=== PATIENT | female | born 1975 | race Asian ===

== ENCOUNTER 2019-12-22 11:19 | Outpatient (CLI) | payer OTHER, SELFPAY ==
--- NOTE | ~2019-12-22 | XR_ITS ---
XR chest 2V DATE: 12/22/2019 11:42 INDICATION: Shortness of breath TECHNIQUE: PA and lateral views COMPARISON: 10/25/2011 two-view chest and CT pulmonary scan FINDINGS: Normal heart size. No hilar or mediastinal enlargement. No pulmonary infiltrate or consolid ation, pleural effusion or pulmonary vascular congestion or pneumothorax. IMPRESSION: No active cardiopulmonary disease Reviewed, dictated and finalized at location B.
== END 2019-12-22 11:20 | disposition home or self-care (01) ==
PROVIDERS: PCP Internal Medicine; Visit Provider Nurse Practitioner
DX: R06.02 Shortness of breath (principal)
CPT/HCPCS: 71046

== ENCOUNTER 2019-12-22 14:57 | Outpatient (CLI) | payer OTHER, SELFPAY ==
--- NOTE | 2019-12-22 | ECG_ITS ---
Measurements Intervals [place] Rate: 72 P: 47 AL: 171 QRS: 37 QRSD: 74 T: 16 QT: 395 QTc: 434 Interpretive Statements SINUS RHYTHM RSR' IN V1 OR V2, PROBABLY NORMAL VARIANT BORDERLINE ST-T WAVE ABNORMALITY- INFERIOR LEADS BORDERLINE ECG Electronically Signed On 12-22-2019 15:19:45 CDT by Bryn Daniel D.O.
== END 2019-12-22 14:58 | disposition home or self-care (01) ==
LOC: ANHCARD 15:00
PROVIDERS: PCP Internal Medicine; Visit Provider Nurse Practitioner
DX: R06.02 Shortness of breath (principal)
CPT/HCPCS: 93005

== ENCOUNTER 2019-12-23 11:11 | Outpatient (CLI) | payer OTHER, SELFPAY ==
[2019-12-23 11:48] LABS: Basophils Absolute Auto 0.1 K/mm3 (0.0-0.1); Basophils Percent Auto 0.6 % (0.2-1.2); Eosinophils Absolute Auto 0.3 K/mm3 (0-0.3); Hematocrit 40.5 % (37.0-47.0); Immature Granulocyte Absolute 0.08 K/mm3 (0.00-0.031); Lymphocytes Absolute Auto 2.03 K/mm3 (0.9-3.2); Lymphocytes Percent Auto 24.3 % (18.3-44.2); Mean Corpuscular HGB Conc 34.6 g/dl (32-36); Mean Corpuscular Hemoglobin 32.9 pg (26-34); Mean Corpuscular Volume 95.3 fl (80-100); Mean Platelet Volume 10.7 fl (7.4-10.4); Monocytes Absolute Auto 0.7 K/mm3 (0.1-0.6); Monocytes Percent Auto 8.7 % (2.6-8.5); Neutrophils Absolute Auto 5.2 K/mm3 (1.3-6.7); Neutrophils Percent Auto 62.4 % (45.5-73.1); Platelet Count Result 148 k/mm3 (150-375); Red Blood Count 4.25 M/mm3 (4.2-5.4); Red Cell Distribution Width 12.1 % (11.5-14.5); White Blood Count 8.4 K/mm3 (4.5-10.0)
[2019-12-23 12:05] LABS: Alanine Aminotransferase 25 U/L (4-35); Albumin Level 4.1 g/dL (3.5-5.1); Alkaline Phosphatase 50 U/L (38-126); Aspartate Amino Transferase 27 U/L (14-36); Bilirubin,Total 0.5 mg/dL (0.2-1.3); Blood Urea Nitrogen 10 mg/dL (7-17); Calcium 9.1 mg/dL (8.4-10.2); Carbon Dioxide 26 mmol/L (22-30); Chloride 105 mmol/L (98-107); Estimated Glomerular Filt Rate > 60; Glucose 104 mg/dL (65-105); Potassium 4.3 mmol/L (3.4-5.0); Sodium 138 mmol/L (137-145)
== END 2019-12-23 11:12 | disposition home or self-care (01) ==
PROVIDERS: PCP Internal Medicine; Visit Provider Nurse Practitioner
DX: R06.02 Shortness of breath (principal)
CPT/HCPCS: 36415; 80053; 84443; 85025

== ENCOUNTER 2020-03-07 15:16 | Outpatient (CLI) | payer OTHER, SELFPAY ==
--- NOTE | ~2020-03-07 | XR_ITS ---
EXAMINATION: XR chest 2V DATE: 03/07/2020 15:32 INDICATION: Mid to left-sided chest pain TECHNIQUE: PA and lateral views of the chest are obtained. COMPARISON: 12/22/2019 FINDINGS: The lungs are free of acute opacities. There is no pleural effusion or pneumothorax. The ca rdiomediastinal silhouette is normal. The visualized bones and soft tissues are unremarkable. IMPRESSION: 1. No acute cardiopulmonary abnormality. Reviewed, dictated and finalized at location A.
== END 2020-03-07 15:17 | disposition home or self-care (01) ==
LOC: ANHIMG 15:17
PROVIDERS: PCP Internal Medicine; Visit Provider Clinical Nurse Specialist
DX: M54.9 Dorsalgia, unspecified (principal); R07.81 Pleurodynia
CPT/HCPCS: 71046

== ENCOUNTER 2020-03-08 12:36 | Emergency (ER) | payer OTHER, SELFPAY ==
[2020-03-08 12:38] VITALS: BP 153/97; PULSE 81; RESP 16; TEMP 36.6; O2SAT 98
--- NOTE | 2020-03-08 12:43 | ECG_ITS ---
Measurements Intervals [place] Rate: 78 P: 40 WI: 160 QRS: 22 QRSD: 86 T: 23 QT: 368 QTc: 421 Interpretive Statements SINUS RHYTHM NONSPECIFIC ST ELEVATION IN ANTERIOR LEADS- PROBABLY EARLY REPOLARIZATION BORDERLINE T WAVE ABNORMALITY- INFERIOR LEADS BORDERLINE ECG Electronically Signed On 03-08-2020 13:04:27 CDT by Bryn Daniel D.O.
[2020-03-08 12:49] VITALS: BP 126/93; PULSE 80; PULSE 83; RESP 19; O2SAT 98
[2020-03-08] MEDS: ASPIRIN 81 MG CHEWABLE TABLET 324 MG PO (12:50)
[2020-03-08 13:04] LABS: Basophils Absolute Auto 0.1 K/mm3 (0.0-0.1); Basophils Percent Auto 1.1 % (0.2-1.2); Eosinophils Absolute Auto 0.1 K/mm3 (0-0.3); Eosinophils Percent Auto 1.8 % (0-4.4); Hematocrit 41.3 % (37.0-47.0); Hemoglobin 14.3 g/dL (12.0-15.0); Immature Granulocyte Absolute 0.01 K/mm3 (0.00-0.031); Immature Granulocyte Percent A 0.2 % (0-0.5); Lymphocytes Absolute Auto 1.26 K/mm3 (0.9-3.2); Lymphocytes Percent Auto 22.6 % (18.3-44.2); Mean Corpuscular HGB Conc 34.6 g/dl (32-36); Mean Corpuscular Hemoglobin 33.1 pg (26-34); Mean Corpuscular Volume 95.6 fl (80-100); Mean Platelet Volume 10.5 fl (7.4-10.4); Monocytes Absolute Auto 0.4 K/mm3 (0.1-0.6); Monocytes Percent Auto 7.2 % (2.6-8.5); Neutrophils Absolute Auto 3.8 K/mm3 (1.3-6.7); Neutrophils Percent Auto 67.1 % (45.5-73.1); Platelet Count Result 162 k/mm3 (150-375); Red Blood Count 4.32 M/mm3 (4.2-5.4); Red Cell Distribution Width 12.2 % (11.5-14.5); White Blood Count 5.6 K/mm3 (4.5-10.0)
[2020-03-08 13:14] LABS: Partial Thromboplastin Time 27.5 SECONDS (22.3-36.8)
[2020-03-08 13:17] LABS: Blood Urea Nitrogen 13 mg/dL (7-17); Calcium 9.2 mg/dL (8.4-10.2); Carbon Dioxide 23 mmol/L (22-30); Chloride 106 mmol/L (98-107); Estimated CRCL calculation 72 ml/min; Estimated Glomerular Filt Rate > 60; Glucose 146 mg/dL (65-105); Potassium 3.7 mmol/L (3.4-5.0); Sodium 139 mmol/L (137-145)
--- NOTE | 2020-03-08 13:23 | ED.CHESTPAIN ---
HPI - Chest Pain General Chief Complaint: Chest Pain Stated Complaint: Chest Pain Time Seen by Provider: 03/08/20 12:52 Source: patient Mode of arrival: ambulatory Limitations: no limitations History of Present Illness HPI narrative: This patient is a 44 year old female who presents for evaluation of left flank pain that comes around to her mid chest. THis pain has been present constantly for 10 days. She states her pain is still getting worse. She has also notice a rash to left flank pain that started at the same time. She was evaluated by her PCP yesterday and she had a chest xray. She denies fever, cough, nausea, vomiting or shortness of breath. She is taking ibuprofen for her pain. Related Data Home Medications Medication Instructions Recorded Confirmed lisinopril 5 mg tablet 5 mg PO DAILY 11/03/19 12/23/19 Allergies Allergy/AdvReac Type Severity Reaction Status Date / Time No Known Allergies Allergy Unknown Verified 03/08/20 12:51 Review of Systems Review of Systems: All systems reviewed & are unremarkable except as noted in HPI and below Constitutional: Constitutional: Denies chills and Denies fever(s) Cardiovascular: Cardiovascular: Reports chest pain Respiratory: Respiratory: Denies cough and Denies dyspnea Gastrointestinal: Gastrointestinal: Denies abdominal pain, Denies nausea and Denies vomiting Genitourinary: Genitourinary: Denies hematuria and Denies nocturia PMFSH Past Medical History Medical History (Updated 03/08/20 @ 16:13 by Shawna Mcneil MD) Back pain HTN (hypertension) Myalgia Vitamin deficiency Surgical History Surgical History (Updated 11/03/19 @ 08:03 by Jo Aguirre CMA) History of thyroidectomy Family History Family History (Updated 11/03/19 @ 08:03 by Jo Aguirre CMA) Father Hypertension Mother Hypertension Osteoarthritis Social History Social History (Updated 03/02/20 @ 08:00 by Jo Aguirre CMA) Smoking status: Never smoker Alcohol intake: current Gender identity (if verbalized by the patient): Female Exam Narrative: Exam Narrative: GENERAL: Well-appearing, well-nourished, mild distress due to pain HEAD: Normocephalic, atraumatic EYES: PERRLA and EOMI, conjunctiva clear without discharge EARS: TM's clear bilaterally without erythema or dullness NOSE: Nares clear, no rhinorrhea or epistaxis THROAT:Mucous membranes moist, Oropharynx normal without erythema, exudate, peritonsillar swelling or fluctuance NECK: Supple, without lymphadenopathy or mass RESPIRATORY: No respiratory distress, Airway patent, Respirations non-labored, Clear to auscultation without rales, rhonchi or wheeze HEART: Regular rate and rhythm. No murmur heard. Normal peripheral pulses. left lower rib, sternal tenderness ABDOMEN: Soft, nontender, nondistended, normal active bowel sounds. No masses. No rebound or guarding, No organomegaly. EXTREMITIES: No edema, normal strength with full range of motion. SKIN: Warm, dry, she has a few clusters of vesicular rash to left flank rib along where her pain is located. NEURO: Alert and oriented x3. CN 2-12 grossly intact. No focal deficits. PSYCH: Normal mood and affect. Course Reevaluation(s) Reevaluation #1: Patient declined Chest xray as she had one yesterday. I discussed labs are normal and this pain appears to be reproducible and it may actually be shingles as she has vesicular rash to left flank. Date: 03/08/20 Time: 16:11 Vital Signs Vital signs: Vital Signs Temperature 98 F 03/08/20 12:38 Pulse Rate 81 03/08/20 12:38 Respiratory Rate 16 03/08/20 12:38 Blood Pressure 153/97 H 03/08/20 12:38 Pulse Oximetry 98 03/08/20 12:38 Temperature 98.6 F 03/08/20 16:55 Pulse Rate 68 03/08/20 16:55 Respiratory Rate 17 03/08/20 16:55 Blood Pressure 141/90 H 03/08/20 16:55 Pulse Oximetry 100 03/08/20 16:55 MDM - Chest Pain Lab Data Attestation: I reviewed the patient's
[2020-03-08 13:28] LABS: Troponin I < 0.012 ng/mL (0.000-0.034)
[2020-03-08 13:42] LABS: Alanine Aminotransferase 69 U/L (4-35); Albumin Level 4.6 g/dL (3.5-5.1); Alkaline Phosphatase 61 U/L (38-126); Aspartate Amino Transferase 53 U/L (14-36); Bilirubin,Total 0.7 mg/dL (0.2-1.3); Lipase 128 U/L (23-300)
[2020-03-08] MEDS: ONDANSETRON INJ 4 MG/2 ML VIAL IV PUSH (14:01)
[2020-03-08] MEDS: HYDROMORPHONE HCL 1 MG/ML INJ 0.5 MG IV PUSH (14:03)
[2020-03-08 14:35] VITALS: BP 142/88; PULSE 63; RESP 20; O2SAT 96
--- NOTE | 2020-03-08 16:00 | PC.NURSE ---
ERP at bedside for ultrasound..
[2020-03-08 16:04] LABS: Troponin I < 0.012 ng/mL (0.000-0.034)
[2020-03-08 16:55] VITALS: BP 141/90; PULSE 68; RESP 17; TEMP 37; O2SAT 100
== END 2020-03-08 16:59 | disposition home or self-care (01) ==
PROVIDERS: Emergency Provider General Practice; PCP Internal Medicine
DX: R07.9 Chest pain, unspecified (principal); B02.9 Zoster without complications; I10 Essential (primary) hypertension; E89.0 Postprocedural hypothyroidism
CPT/HCPCS: 36415; 80048; 80076; 83690; 84484; 85025; 85380; 85610; 85730; 93005; 96374; 96375; 99284; A9270; J1170; J2405

== ENCOUNTER → 2020-04-21 14:33 | Outpatient (CLI) | payer OTHER, SELFPAY ==
--- NOTE | ~2020-04-21 | MM_ITS ---
EXAMINATION: MM screening [facility] BI w pete HISTORY: Screening mammogram TECHNIQUE: Craniocaudal and mediolateral oblique 3-D tomosynthesis images were obtained and synthetic 2-D images were generated. CAD analysis was submitted and interpreted. COMPARISON: 01/13/2019, 11/12/2017, 11/09/2016, 11/01/2016 BREAST PARENCHYMAL COMPOSITION: There are scattered areas of fibroglandular density. FINDINGS: A stable mass in the upper outer quadrant of the right breast has the appearance of an intr amammary lymph node. There is no evidence of suspicious mass, calcification, or architectural distort ion to suggest malignancy in either breast. There has been no suspicious interval change. IMPRESSION: 1. No mammographic evidence of malignancy. 2. Recommend routine screening mammography in one year. BI-RADS Category 2: Benign finding(s). Reviewed, dictated and finalized at location B.
== END ==
PROVIDERS: Visit Provider Nurse Practitioner Obstetrics & Gynecology
DX: Z12.31 Encounter for screening mammogram for malignant neoplasm of breast (principal)
CPT/HCPCS: 77063; 77067

== ENCOUNTER → 2020-06-15 08:45 | Outpatient (CLI) | payer OTHER, SELFPAY ==
--- NOTE | ~2020-06-15 | MMUS_ITS ---
EXAMINATION: MM diagnostic [place] RT w pete, US breast RT limited HISTORY: Right breast mass TECHNIQUE: ML, MLO and cc 3-D tomosynthesis images of the right breast were performed and synthetic 2 -D images were generated. CAD analysis was submitted and interpreted. High resolution upper outer melania drant right breast ultrasound was performed. COMPARISON: Serial mammograms dating back to 11/01/2016 FINDINGS: MAMMOGRAPHIC FINDINGS: There is a low-density circumscribed approximate 4 mm opacity in the posterior upper outer right lou st, which appears stable since prior examinations. The mammographic appearance is benign. ULTRASOUND: 10:00 6 cm from nipple: 2.7 x 5 mm lymph node, with circumscribed margins, no suspicious shadowing. T his has the sonographic appearance of a benign lymph node. IMPRESSION: 1. Benign lymph node at 10:00 6 cm from nipple 2. Routine mammographic screening is recommended. BI-RADS Category 2: Benign finding(s). Reviewed, dictated and finalized at location A. IMPRESSION: 1. Benign lymph node at 10:00 6 cm from nipple 2. Routine mammographic screening is recommended. BI-RADS Category 2: Benign finding(s).
== END ==
PROVIDERS: PCP Internal Medicine
DX: N63.11 Unspecified lump in the right breast, upper outer quadrant (principal)
CPT/HCPCS: 76642; 77061; 77065; G0279

== ENCOUNTER → 2020-08-30 09:29 | Outpatient (CLI) | payer OTHER, SELFPAY ==
--- NOTE | ~2020-08-30 | US_ITS ---
US breast BI complete 08/30/2020 09:54 Indication: Bilateral breast pain Procedure: Comparison to multiple prior studies sequentially, with oldest reviewed study dated 2019. Comparison: No prior studies for comparison. Findings: There is a normal 4 mm lymph node of the right breast at 10:00, 6 cm from the nipple. No ma ss identified in the left breast. Impression: 1: No sonographic evidence for malignancy in either breast. Routine yearly screening mammogram and regular clinical breast examination are recommended. BI-RADS CATEGORY 2 - BENIGN FINDINGS Reviewed, dictated and finalized at location A. 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 Routine yearly screening mammogram and regular clinical breast examination are recommended. BI-RADS CATEGORY 2 - BENIGN FINDINGS
== END ==
PROVIDERS: Visit Provider Nurse Practitioner Obstetrics & Gynecology
DX: N64.4 Mastodynia (principal)
CPT/HCPCS: 76641

== ENCOUNTER → 2021-07-04 07:26 | Outpatient (CLI) | payer OTHER, SELFPAY ==
--- NOTE | ~2021-07-04 | MM_ITS ---
EXAMINATION: MM screening [facility] BI w pete HISTORY: Screening TECHNIQUE: Craniocaudal and mediolateral oblique 3-D tomosynthesis images were obtained and synthetic 2-D images were generated. CAD analysis was submitted and interpreted. COMPARISON: Comparison to multiple prior studies sequentially, with oldest reviewed study dated 05/2017. BREAST PARENCHYMAL COMPOSITION: There are scattered areas of fibroglandular density. FINDINGS: There is no evidence of suspicious mass, calcification, or architectural distortion to sugg est malignancy in either breast. There has been no suspicious interval change. IMPRESSION: 1. No mammographic evidence of malignancy. 2. Recommend routine screening mammography in one year. BI-RADS Category 1: Negative Reviewed, dictated and finalized at location A.
== END ==
PROVIDERS: PCP Internal Medicine; Visit Provider Nurse Practitioner Obstetrics & Gynecology
DX: Z12.31 Encounter for screening mammogram for malignant neoplasm of breast (principal)
CPT/HCPCS: 77063; 77067

== ENCOUNTER → 2021-07-24 14:46 | Outpatient (CLI) | payer OTHER, SELFPAY ==
--- NOTE | ~2021-07-24 | US_ITS ---
EXAMINATION: US soft tissue LE LT INDICATION: Localized swelling, mass, and lump of the left side. TECHNIQUE: Targeted high-resolution ultrasound is performed in the area of clinical concern. COMPARISON: None available FINDINGS: Varicose veins are noted. There is a superficial thrombosed varicose vein in the area of cl inical concern. No suspicious mass is identified. IMPRESSION: 1. Thrombosed superficial varicose vein in the area of clinical concern. Reviewed, dictated and finalized at location B.
== END ==
PROVIDERS: PCP Internal Medicine; Visit Provider Nurse Practitioner
DX: I82.812 Embolism and thrombosis of superficial veins of left lower extremity (principal)
CPT/HCPCS: 76882

== ENCOUNTER 2022-04-11 11:28 | Outpatient (CLI) | payer OTHER, SELFPAY ==
[2022-04-11 19:26] LABS: Erythrocyte Sedimentation Rate 12 mm/hr (0-20)
== END 2022-04-11 11:29 | disposition home or self-care (01) ==
LOC: ANHGOSHLAB 11:29
PROVIDERS: PCP Internal Medicine; Visit Provider Nurse Practitioner
DX: R51.9 Headache, unspecified (principal)
CPT/HCPCS: 36415; 85652

== ENCOUNTER → 2022-04-17 13:02 | Outpatient (CLI) | payer OTHER, SELFPAY ==
--- NOTE | ~2022-04-17 | MR_ITS ---
EXAMINATION: MR brain/brain stem wo/w con DATE: 04/17/2022 14:00 INDICATION: New onset headaches TECHNIQUE: Magnetic resonance imaging (MRI) of the brain and brainstem was performed without and with 14 mL Multihance intravenous contrast. Sequences included sagittal and axial T1-weighted SE, axial d iffusion-weighted FS SE, axial T2*-weighted GRE, axial 3D SWAN, axial T2-weighted FLAIR, and axial T2 -weighted FSE. Postcontrast axial and coronal T1-weighted SE was obtained. Apparent diffusion coeffic ient (ADC) maps were created. COMPARISON: None. FINDINGS: There are no areas of restricted diffusion to suggest acute infarction. No intracranial hemorrhage or abnormal intracranial mass lesion. There are scattered foci of nonspecific T2 hyperintensity in the white matter of the bilateral cerebral hemisphere. There are 11 lesions in the right cerebral hemisph ere and 8 on the left cerebral hemisphere. Number and size of the lesions are disproportionate for ag e. No associated enhancement or other abnormally enhancing lesions. There are no intraparenchymal sig nal abnormalities seen on the other pulse sequences. The ventricles are symmetric and normal in size. There are no abnormal extra-axial fluid collections. Flow voids are seen in the cerebral arteries on the T2-weighted sequences consistent with their expected patency. Mild mucosal thickening the bilate ral ethmoid and maxillary sinuses. Visualized orbits and soft tissues are unremarkable. There are no areas of abnormal enhancement on the post contrast images. IMPRESSION: 1. Several scattered nonspecific T2 hyperintense white matter lesions in the left and right cerebral hemispheres which are disproportionate for age. The differential diagnosis includes premature chronic small vessel ischemic disease (especially if the patient has a other cardiovascular risk factors), d emyelinating disease such as multiple sclerosis or acute disseminated encephalomyelitis (ADEM), chron ic recurrent migraines, CADASIL, drug abuse, vasculitis, or reactive astrocytosis (gliosis) secondary to nonspecific etiology. Reviewed, dictated and finalized at location A. IMPRESSION: 1. Several scattered nonspecific T2 hyperintense white matter lesions in the le ft and right cerebral hemispheres which are disproportionate for age. The diffe rential diagnosis includes premature chronic small vessel ischemic disease (porsha ecially if the patient has a other cardiovascular risk factors), demyelinating disease such as multiple sclerosis or acute disseminated encephalomyelitis (BRIAN M), chronic recurrent migraines, CADASIL, drug abuse, vasculitis, or reactive a strocytosis (gliosis) secondary to nonspecific etiology.
[2022-04-17 13:39] LABS: Estimated Glomerular Filt Rate > 60
== END ==
PROVIDERS: PCP Internal Medicine; Visit Provider Nurse Practitioner
DX: R51.9 Headache, unspecified (principal); R93.0 Abnormal findings on diagnostic imaging of skull and head, not elsewhere classified
CPT/HCPCS: 70553; A9577

== ENCOUNTER → 2022-08-13 08:29 | Outpatient (CLI) | payer OTHER, SELFPAY ==
--- NOTE | ~2022-08-13 | XR_ITS ---
EXAMINATION: XR shoulder RT min 2V DATE: 08/13/2022 08:42 INDICATION: Posterior right shoulder pain TECHNIQUE: AP internally and externally rotated, AP oblique externally rotated and axillary views of the right shoulder were obtained. COMPARISON: None FINDINGS: Normal alignment. No fracture. Glenohumeral joint is normal. Acromioclavicular joint is normal. Soft tissues are unremarkable. Visualized portions of the lungs are clear. IMPRESSION: Negative right shoulder radiographs. Reviewed, dictated and finalized at location A. 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
== END ==
PROVIDERS: PCP Internal Medicine; Visit Provider Clinical Nurse Specialist
DX: M25.511 Pain in right shoulder (principal)
CPT/HCPCS: 73030

== ENCOUNTER 2022-09-01 13:46 | Outpatient (CLI) | payer OTHER, SELFPAY ==
--- NOTE | ~2022-09-01 | MM_ITS ---
EXAMINATION: MM screening [facility] BI w pete HISTORY: Screening TECHNIQUE: Craniocaudal and mediolateral oblique 3-D tomosynthesis images were obtained and synthetic 2-D images were generated. CAD analysis was submitted and interpreted. COMPARISON: Comparison to multiple prior studies sequentially, with oldest reviewed study dated 11/20. BREAST PARENCHYMAL COMPOSITION: There are scattered areas of fibroglandular density. FINDINGS: There is no evidence of suspicious mass, calcification, or architectural distortion to sugg est malignancy in either breast. There has been no suspicious interval change. IMPRESSION: 1. No mammographic evidence of malignancy. 2. Recommend routine screening mammography in one year. BI-RADS Category 1: Negative Reviewed, dictated and finalized at location B. EVEL PROVIDER
== END 2022-09-01 13:47 | disposition home or self-care (01) ==
LOC: ANHIMG 13:47
PROVIDERS: PCP Internal Medicine; Visit Provider Nurse Practitioner Obstetrics & Gynecology
DX: Z12.31 Encounter for screening mammogram for malignant neoplasm of breast (principal)
CPT/HCPCS: 77063; 77067

== ENCOUNTER 2023-01-31 06:21 | Day surgery (SDC) | payer OTHER, SELFPAY ==
[2023-01-15 14:48] VITALS: BMI 32.1
--- NOTE | 2023-01-30 14:53 | P.PNAN_ITS ---
Anes - Initial Pre Proc Eval Procedure: Operation Date: 01/31/23 08:00 Proposed Procedures p Diagnostic Colonoscopy - Rich Valle MD Date/Time: 01/30/23 14:53 Surgeon: Rich Valle MD Pre Op Diagnosis: Melena Patient Data Age: 47 Gender: F Height: 1.55 m Weight: 77 kg Allergies Allergy/AdvReac Type Severity Reaction Status Date / Time No Known Allergies Allergy Unknown Verified 01/31/23 06:44 Home Medications Medication Instructions Recorded Confirmed Type ozanimod 0.92 mg capsule (Zeposia) See Rx Instructions PO .COMPLEX 08/01/22 01/31/23 History lisinopril 5 mg tablet 5 mg PO DAILY #90 tabs 08/15/22 01/31/23 Rx Patient hx anesthesia problems: none Family hx anesthesia problems: none Results Review: All pre-operative results and documents have been reviewed as part of the pre- operative evaluation. [facility] Past Medical History Medical History (Updated 01/30/23 @ 14:54 by Maciej Merchant MD) Back pain Dermatitis HTN (hypertension) Multiple sclerosis Myalgia Obesity Varicose veins of lower extremity Vitamin deficiency Surgical History Surgical History History of thyroidectomy Family History Family History Father Hypertension Mother Hypertension Osteoarthritis Social History Social History (Updated 10/11/22 @ 08:38 by Enedelia Mar CMA) Social History: Caffeine-Tea Smoking status: Never smoker Alcohol intake: current Drinks per week: 3 Alcohol use details: occasional Substance use: never Substance use type: does not use Lack of Transportation: No Lack of Food: Often True Current Housing: I Have Housing Concerned About Future Housing: No Difficulty Paying Gas/Electric Bills: No Difficulty Paying for Meds: No Currently Unemployed: No Education: Decline to Answer Difficulty w/ Childcare or Family Care: No Living arrangements: with family Gender identity (if verbalized by the patient): Female Spiritual care concerns: No Anes - Eval Final PreProcedure Day of Procedure 01/30/23 14:53 Patient weight: obese Heart: regular rate and rhythm Lungs: clear to auscultation and normal air movement Airway: Mallampati scale class II Neurological: alert and oriented Last oral intake: >/= 8 hours ASA classification: III Emergent: no Anesthetic plan: proceed Anesthesia type and monitoring: general GIVS Results Review: All pre-operative results and documents have been reviewed as part of the pre- operative evaluation. Informed Consent: The patient's anesthetic plan and its attendant risks and benefits were discussed with the patient/family/POA. Questions were solicited and answers provided to the satisfaction of the patient/family/POA.
[2023-01-31 06:40] VITALS: BP 124/97; PULSE 82; RESP 18; TEMP 36.5; O2SAT 99
[2023-01-31] MEDS: LACTATED RINGERS 1,000 ML 150 ML IV CONT (07:21)
--- NOTE | 2023-01-31 07:56 | PM.HPGS ---
History of Present Illness History of Present Illness Consent: Risks, benefits, and alternatives have been discussed and questions answered. Patient agrees to proceed with procedure. Chief complaint: Melena Narrative: Yoseph Sandoval is a 47 year old female with llq pain few weeks ago, also noted blood in stool, never had colonoscopy Review of Systems Constitutional: Constitutional: Denies headache(s) and Denies weakness Eyes: Eyes: Denies blurry vision ENT: Reports Normal hearing present, Denies headache(s) and Denies neck pain Cardiovascular: Cardiovascular: Denies chest pain and Denies dyspnea Respiratory: Respiratory: Denies dyspnea Gastrointestinal: Gastrointestinal: Reports no additional gastrointestinal complaints Genitourinary: Genitourinary: Denies dysuria Musculoskeletal: Musculoskeletal: Denies neck pain Integumentary/Breasts: Skin/Breast: Denies dry skin Neurologic: Reports Normal hearing present, Denies headache(s) and Denies weakness Psychiatric: Psychiatric: Denies anxiety Endocrine: Endocrine: Denies change in body appearance Hematologic/Lymphatic: Hematologic/Lymphatic: Denies easy bleeding Allergic/Immunologic: Allergic/Immunologic: Denies urticaria PMFSH Past Medical History Medical History (Updated 01/30/23 @ 14:54 by Maciej Merchant MD) Back pain Dermatitis HTN (hypertension) Multiple sclerosis Myalgia Obesity Varicose veins of lower extremity Vitamin deficiency Surgical History Surgical History History of thyroidectomy Family History Family History Father Hypertension Mother Hypertension Osteoarthritis Social History Social History (Updated 10/11/22 @ 08:38 by Enedelia Mar CMA) Social History: Caffeine-Tea Smoking status: Never smoker Alcohol intake: current Drinks per week: 3 Alcohol use details: occasional Substance use: never Substance use type: does not use Lack of Transportation: No Lack of Food: Often True Current Housing: I Have Housing Concerned About Future Housing: No Difficulty Paying Gas/Electric Bills: No Difficulty Paying for Meds: No Currently Unemployed: No Education: Decline to Answer Difficulty w/ Childcare or Family Care: No Living arrangements: with family Gender identity (if verbalized by the patient): Female Spiritual care concerns: No Meds Home Medications and Allergies Home Medications Medication Instructions Recorded Confirmed Type ozanimod 0.92 mg capsule (Zeposia) See Rx Instructions PO .COMPLEX 08/01/22 01/31/23 History lisinopril 5 mg tablet 5 mg PO DAILY #90 tabs 08/15/22 01/31/23 Rx Allergies Allergy/AdvReac Type Severity Reaction Status Date / Time No Known Allergies Allergy Unknown Verified 01/31/23 06:44 Vital Signs Vital Signs - 24 hr 01/31/23 06:40 Temperature 97.7 F Pulse Rate 82 Respiratory Rate 18 Blood Pressure 124/97 H Pulse Oximetry 99 Oxygen Delivery Room Air Exam Const: General: comfortable and no acute distress HENMT: Face/Nose/Sinus: Normal nares present Eyes: General: appearance normal, both eyes and all related structures Neck: Neck: no JVD Resp: Auscultation: clear to auscultation bilaterally Cardio: Rate: regular rate Rhythm: regular rhythm GI: Inspection: non-distended GI Palp: Yes Soft to palpation Skin: General skin exam: normal color Neuro: General: gait normal Speech: normal speech Extrem: General: normal to inspection Psych: Mental Status: mental status grossly normal Assessment and Plan Assessment and plan (1) Screening for colon cancer: Code(s): Z12.11 - Encounter for screening for malignant neoplasm of colon Status: Acute Assessment and Plan: colonoscopy (2) Blood in stool: Code(s): K92.1 - Melena Status: Acute
[2023-01-31 08:22] VITALS: BP 100/69; PULSE 66; RESP 16; O2SAT 98
[2023-01-31 08:32] VITALS: BP 114/83; PULSE 66; RESP 16; O2SAT 100
[2023-01-31 08:42] VITALS: BP 126/86; PULSE 68; RESP 18; O2SAT 98
--- NOTE | 2023-02-05 08:42 | WPDANESPN ---
Anes - Prog Note Post-Op Date/Time: 02/05/23 08:42 Cardiovascular status: normal Respiratory status: normal Airway patency: baseline Mental status: baseline Post-Op hydration status: normal Vital Signs: Last Vital Signs Temp 36.5 C 01/31/23 06:40 Pulse 68 01/31/23 08:42 Resp 18 01/31/23 08:42 BP 126/86 01/31/23 08:42 Pulse Ox 98 01/31/23 08:42 O2 Del Method Room Air 01/31/23 08:42 Pain Score (VAS): 0 Post-procedural complaints: none Patient Feedback: Patient satisfied with anesthetic care.
== END 2023-01-31 09:02 | disposition home or self-care (01) ==
PROVIDERS: PCP Internal Medicine; Visit Provider Internal Medicine Gastroenterology
PROC: 0DJD8ZZ Inspection of Lower Intestinal Tract, Via Natural or Artificial Opening Endoscopic (ICD-10-PCS; CPT 45378; principal; 2023-01-31 08:00)
DX: Z12.11 Encounter for screening for malignant neoplasm of colon (principal)
CPT/HCPCS: 45380

== ENCOUNTER 2023-01-31 09:00 | Outpatient (NON) | payer OTHER, SELFPAY | END 2023-01-31 09:01 | disposition home or self-care (01) | LOC: ANHLAB 02-01 09:56 | PROVIDERS: PCP Internal Medicine; Visit Provider Internal Medicine Gastroenterology | DX: D12.3 Benign neoplasm of transverse colon (principal) | CPT/HCPCS: 88305 ==

== ENCOUNTER 2023-03-22 04:45 | Day surgery (SDC) | payer OTHER, SELFPAY ==
[2023-03-18 09:57] VITALS: BMI 32.1
--- NOTE | 2023-03-18 10:03 | PC.NURSE ---
Report to the Outpatient Waiting Room, entrance under the green pavilion located off [facility], at time 6:00 on date 03/22/23. Planned Procedure Time: 7:30. Time changes happen often and if your time is changed the preop area will call you the afternoon before. - You and your visitor will be asked to self-screen and do not enter if you have any COVID symptoms. - A mask is optional within the hospital at this time. Patients may have clear liquids (water, carbonated beverages, clear teas, apple juice) until 3 hours prior to surgery with a maximum of 20 ounces. - No food from midnight until time of surgery Take the following medications with a SIP of water the morning of surgery: NONE DO NOT STOP ANY OF YOUR OTHER PRESCRIPTION MEDICATIONS PRIOR TO SURGERY ?EXCEPT THE FOLLOWING Medications to discontinue per physician: N/A Date to take last dose: N/A Please no make-up, nail spanish, hairspray, perfume, deodorant, or body powder the day of surgery. No jewelry (including any body piercings) or valuables the day of surgery, leave them at home. Please take a shower or bath the night before, or the morning of, surgery with an antibacterial soap. Wear comfortable, loose fitting clothing. - Jewelry must be removed prior to entering the operating room. Rings and piercings that are not removed may be cut off. - The hospital will not accept responsibility for valuables. - Please leave all valuables, including medications, at home the day of surgery. If you are going home after surgery, a licensed driver starting gate must drive you home. - NO public transportation without another adult if you receive anesthesia. - We recommend that an adult stay with you for 24 hours following discharge. - We also recommend that you do not drive, make important decision, drink alcoholic beverages, or take any drugs that were not prescribed by your health care provider for at least 24 hours after your discharge time. Follow any additional instructions given to you from your surgeon. If you or anyone in your household have experienced Covid symptoms in the past week, please notify your surgeon or the nurse liaison at the phone number below for possible testing. Telephone instructions given to PT - JOSE ENRIQUE LOWE and asked if any additional questions and then verbalized understanding. Patient advised to call surgeon office or pre surgery nurse liaison [phone] if any additional questions.
--- NOTE | 2023-03-21 13:26 | P.PNAN_ITS ---
Anes - Initial Pre Proc Eval Procedure: Operation Date: 03/22/23 07:30 Proposed Procedures p Excision of Forehead Mass - Isra Peter MD Date/Time: 03/21/23 13:26 Surgeon: Isra Peter MD Pre Op Diagnosis: 1cm forehead mass Patient Data Age: 47 Gender: F Height: 1.55 m Weight: 77.15 kg Allergies Allergy/AdvReac Type Severity Reaction Status Date / Time No Known Allergies Allergy Unknown Verified 03/22/23 06:19 Home Medications Medication Instructions Recorded Confirmed Type ozanimod 0.92 mg capsule (Zeposia) See Rx Instructions PO .COMPLEX 08/01/22 03/22/23 History lisinopril 5 mg tablet 5 mg PO DAILY #90 tabs 08/15/22 03/22/23 Rx Patient hx anesthesia problems: none Family hx anesthesia problems: none Results Review: All pre-operative results and documents have been reviewed as part of the pre- operative evaluation. [facility] Past Medical History Medical History (Updated 01/30/23 @ 14:54 by Maciej Merchant MD) Back pain Dermatitis HTN (hypertension) Multiple sclerosis Myalgia Obesity Varicose veins of lower extremity Vitamin deficiency Surgical History Surgical History History of thyroidectomy Family History Family History Father Hypertension Mother Hypertension Osteoarthritis Social History Social History (Updated 10/11/22 @ 08:38 by Enedelia Mar CMA) Social History: Caffeine-Tea Smoking status: Never smoker Alcohol intake: current Drinks per week: 2 Alcohol use details: occasional Substance use: never Substance use type: does not use Lack of Transportation: No Lack of Food: Often True Current Housing: I Have Housing Concerned About Future Housing: No Difficulty Paying Gas/Electric Bills: No Difficulty Paying for Meds: No Currently Unemployed: No Education: Decline to Answer Difficulty w/ Childcare or Family Care: No Living arrangements: with family Gender identity (if verbalized by the patient): Female Spiritual care concerns: No Anes - Eval Final PreProcedure Day of Procedure 03/21/23 13:26 Patient weight: obese Heart: regular rate and rhythm Lungs: clear to auscultation Airway: Mallampati scale class II Neurological: alert and oriented Last oral intake: >/= 8 hours ASA classification: III Emergent: no Anesthetic plan: proceed Anesthesia type and monitoring: general LMA and standard monitoring Results Review: All pre-operative results and documents have been reviewed as part of the pre- operative evaluation. Informed Consent: The patient's anesthetic plan and its attendant risks and benefits were discussed with the patient/family/POA. Questions were solicited and answers provided to the satisfaction of the patient/family/POA.
[2023-03-22] VITALS (7 sets, daily range): BP systolic 99–139; BP diastolic 58–95; PULSE 68–78; RESP 12–18; TEMP 36.2–36.5; O2SAT 93–98
[2023-03-22] MEDS: LACTATED RINGERS 1,000 ML 30 ML IV CONT (06:42)
--- NOTE | 2023-03-22 07:08 | WPDHPUPDATE1 ---
History and Physical Update Update Date/Time: 03/22/23 07:08 History and Physical has been reviewed, including an updated exam of the patient. There are NO changes in the patient's condition. Risks, benefits, and alternatives have been discussed and questions answered. Patient agrees to proceed with procedure.
--- NOTE | 2023-03-22 07:08 | W.PM.PROC2 ---
Procedure Note - Detailed Date of Procedure 03/22/23 Pre-op Diagnosis 1cm forehead mass Post-op Diagnosis Same Procedure Performed Excision left forehead mass 0.8 cm Surgeon Isra Peter MD Anesthesia General Findings Clinical impression osteoma Description of Procedure Pre-operatively the risks, benefits, alternatives were discussed in detail. Discussed local anatomy and risks involved. Discussed recurrence. Discussed aftercare and what to monitor for. All questions answered to her satisfaction and consent obtained. Marked in preoperative holding area with her and her families verification. Taken to the operating room and placed supine on the operating room table. Anesthesia provided by anesthesiology and prepped and draped in a standard sterile fashion. 1% lidocaine 0.25% Marcaine with epi was used to anesthetize locally. A 15 blade was used to make an incision over the lesion, dissection continued protecting frontalis the fibers, and mass identified and periosteum incised. A osteotome was used to elevate and remove. Copiously irrigated with saline solution. Closed with 4-0 Biosyn in frontalis, 5-0 Nylon. Tolerated well. Estimated Blood Loss 5 Drains No Packing No Pathology Yes (Left forehead mass) Complications No immediate complications Condition Stable Disposition PACU
--- NOTE | 2023-03-22 07:22 | SUR.PREOP ---
0720- PER DR. MILLER NO EKG NEEDED FOR PROCEDURE. PT BP REGULATED WITH PO MEDS AND MS RESOLVED. PT AND CARDIOLOGY UPDATED
[2023-03-22] MEDS: ceFAZolin 2 GM/D5W 50 ML 2 GM/50 ML BAG IVPB (07:25)
[2023-03-22] MEDS: LIDO 1%/EPINEPHRINE 1:100,000 20 ML VIAL 10 ML INFILTRATE (08:04)
== END 2023-03-22 09:53 | disposition home or self-care (01) ==
PROVIDERS: PCP Internal Medicine; Visit Provider Surgery Plastic and Reconstructive Surgery
PROC: (CPT 11441; principal; 2023-03-22 07:30)
DX: L94.2 Calcinosis cutis (principal)
CPT/HCPCS: 11441; 88304; A9270; J0690; J1100; J2250; J2405; J2704; J3010; J7120

== ENCOUNTER → 2023-04-10 08:21 | Outpatient (CLI) | payer OTHER, SELFPAY ==
--- NOTE | ~2023-04-10 | US_ITS ---
US right upper quadrant DATE: 04/10/2023 08:40 INDICATION: Abdominal pain TECHNIQUE: Real-time imaging and Doppler analysis COMPARISON: None FINDINGS: The pancreatic tail is not completely visualized but the pancreas otherwise appears unremar kable. No pancreatic duct dilatation. Hepatic steatosis. No hepatic space-occupying mass lesion is detected. Normal hepatopedal portal veno us flow. The common bile duct measures 5.4 mm, within normal range. There is an approximately 3-4 mm fixed defect along the wall of the gallbladder consistent with small polyp. No gallstones or gallbladder wall thickening or abnormal pericholecystic fluid collection is noted. The technologist notes that sonographic Mattson's sign is positive. IMPRESSION: 304 mm gallbladder wall polyp Positive sonographic Mattson sign; however, no gallstones or gallbladder wall thickening or abnormal p ericholecystic fluid collection is detected. If there is clinical concern for acalculous acute cholec ystitis, consider radionuclide hepatobiliary scan Hepatic steatosis Reviewed, dictated and finalized at Location A. Reviewed, dictated and finalized at location B. IMPRESSION: 304 mm gallbladder wall polyp Positive sonographic Mattson sign; however, no gallstones or gallbladder wall th ickening or abnormal pericholecystic fluid collection is detected. If there is clinical concern for acalculous acute cholecystitis, consider radionuclide hepa tobiliary scan Hepatic steatosis
== END ==
PROVIDERS: PCP Nurse Practitioner; Visit Provider Nurse Practitioner
DX: R10.9 Unspecified abdominal pain (principal); K82.4 Cholesterolosis of gallbladder; K76.0 Fatty (change of) liver, not elsewhere classified
CPT/HCPCS: 76705

== ENCOUNTER 2023-04-15 06:52 | Outpatient (CLI) | payer OTHER, SELFPAY ==
--- NOTE | ~2023-04-15 | NM_ITS ---
EXAMINATION: NM hepatobiliary wo pharm DATE: 04/15/2023 14:35 INDICATION: Abdominal pain COMPARISON: None. TECHNIQUE: 5.5 mCi Tc-99m mebrofenin (Choletec) was administered intravenously. Scintigraphic images of the abdomen were obtained for one hour. Additional 3.5 hour delayed scintigrams obtained.. FINDINGS: There is normal clearance of radiotracer from the blood pool. There is homogeneous tracer u ptake by the liver. Activity progresses to the through the common bile duct into the small bowel act ivities first visualized at 15 minutes. Activity seen within the gallbladder on the 3 1/2 hour delaye d image. IMPRESSION: 1. Radiotracer activity identified in the gallbladder on the 3 1/2 or delayed images which argues ag ainst acute cholecystitis. Reviewed, dictated and finalized at location A. IMPRESSION: 1. Radiotracer activity identified in the gallbladder on the 3 1/2 or delayed images which argues against acute cholecystitis.
== END 2023-04-15 06:53 | disposition home or self-care (01) ==
PROVIDERS: PCP Nurse Practitioner; Visit Provider Nurse Practitioner
DX: R10.9 Unspecified abdominal pain (principal)
CPT/HCPCS: 78226; A9537

== ENCOUNTER 2023-04-22 12:53 | Outpatient (CLI) | payer OTHER, SELFPAY ==
--- NOTE | ~2023-04-22 | CT_ITS ---
EXAMINATION: CT abdomen pelvis w con DATE: 04/22/2023 14:29 INDICATION: Unspecified abdominal pain with right upper quadrant abdominal pain, flank pain and epiga stric pain. TECHNIQUE: Computed tomography (CT) of the abdomen and pelvis was performed with 100 mL Omnipaque-350 intravenous contrast. Automated exposure control and iterative reconstruction technique were employe d. The dose-length product was 624.39 mGy-cm. COMPARISON: None FINDINGS: Mild atelectasis at the right middle lobe and dependent the lateral lower lobes. Heart size is normal . No pericardial or pleural effusion. Diffuse hepatic steatosis. Gallbladder, pancreas, bilateral adr enal glands and kidneys are normal. A few small splenic calcific lesions consistent with old granulom atous disease. Bowels including the appendix are normal. Bladder and right adnexa are unremarkable A couple left adnexal cyst measuring 4.0 cm and 2.3 cm in maximal diameters. T-shaped IUD in expected p osition within the anteverted uterus. No free intraperitoneal gas or fluid. No pathologically enlarge d abdominal or pelvic lymphadenopathy. Osteitis pubis. IMPRESSION: 1. Normal gallbladder and appendix. No acute intra-abdominal/pelvic process. 2. IUD in expected position within the anteverted uterus. Reviewed, dictated and finalized at location B.
[2023-04-22 14:22] LABS: Estimated Glomerular Filt Rate > 60
== END 2023-04-22 12:54 | disposition home or self-care (01) ==
PROVIDERS: PCP Nurse Practitioner; Visit Provider Nurse Practitioner
DX: R10.9 Unspecified abdominal pain (principal); Z97.5 Presence of (intrauterine) contraceptive device
CPT/HCPCS: 74177; Q9967

== ENCOUNTER 2023-04-25 07:29 | Outpatient (CLI) | payer OTHER, SELFPAY ==
[2023-04-25 07:54] LABS: Basophils Absolute Auto 0.1 K/mm3 (0.0-0.1); Basophils Percent Auto 0.8 % (0.2-1.2); Eosinophils Absolute Auto 0.2 K/mm3 (0-0.3); Eosinophils Percent Auto 3.5 % (0-4.4); Hematocrit 43.1 % (37.0-47.0); Hemoglobin 14.5 g/dL (12.0-15.0); Immature Granulocyte Absolute 0.03 K/mm3 (0.00-0.031); Immature Granulocyte Percent A 0.5 % (0-0.5); Lymphocytes Absolute Auto 0.99 K/mm3 (0.9-3.2); Lymphocytes Percent Auto 15.7 % (18.3-44.2); Mean Corpuscular HGB Conc 33.6 g/dl (32-36); Mean Corpuscular Hemoglobin 32.8 pg (26-34); Mean Corpuscular Volume 97.5 fl (80-100); Mean Platelet Volume 10.1 fl (7.4-10.4); Monocytes Absolute Auto 0.6 K/mm3 (0.1-0.6); Monocytes Percent Auto 9.5 % (2.6-8.5); Neutrophils Absolute Auto 4.4 K/mm3 (1.3-6.7); Platelet Count Result 198 k/mm3 (150-375); Red Blood Count 4.42 M/mm3 (4.2-5.4); Red Cell Distribution Width 12.1 % (11.5-14.5); White Blood Count 6.3 K/mm3 (4.5-10.0)
[2023-04-25 08:04] LABS: Alanine Aminotransferase 73 U/L (6-35); Albumin Level 3.9 g/dL (3.5-5.1); Alkaline Phosphatase 56 U/L (38-126); Anion Gap 4 mmol/L (8-16); Aspartate Amino Transferase 52 U/L (14-36); Bilirubin,Total 0.8 mg/dL (0.2-1.3); Blood Urea Nitrogen 17 mg/dL (7-17); Calcium 8.7 mg/dL (8.4-10.2); Carbon Dioxide 24 mmol/L (22-30); Chloride 106 mmol/L (98-107); Estimated Glomerular Filt Rate > 60; Glucose 105 mg/dL (65-110); Lipase 165 U/L (23-300); Potassium 3.9 mmol/L (3.4-5.0); Sodium 134 mmol/L (137-145)
== END 2023-04-25 07:30 | disposition home or self-care (01) ==
PROVIDERS: PCP Nurse Practitioner; Visit Provider Nurse Practitioner
DX: R10.9 Unspecified abdominal pain (principal)
CPT/HCPCS: 36415; 80053; 83690; 85025

== ENCOUNTER 2023-05-28 09:15 | Outpatient (CLI) | payer OTHER, SELFPAY ==
[2023-05-28 20:03] LABS: SARS-CoV-2 RNA PCR Negative (Negative)
== END 2023-05-28 09:16 | disposition home or self-care (01) ==
LOC: ANHGOSHLAB 09:18
PROVIDERS: PCP Internal Medicine; Visit Provider Nurse Practitioner
DX: J02.9 Acute pharyngitis, unspecified (principal)
CPT/HCPCS: 87635

== ENCOUNTER → 2023-09-12 08:22 | Outpatient (CLI) | payer OTHER, SELFPAY ==
--- NOTE | ~2023-09-12 | MM_ITS ---
EXAMINATION: MM diagnostic tiffanie BI w pete HISTORY: Breast pain TECHNIQUE: ML, MLO and CC 3-D tomosynthesis images of both breasts were performed and synthetic 2-D i mages were generated. CAD analysis was submitted and interpreted. COMPARISON: 09/01/2022, 07/04/2021ilateral screening mammogram examinations 08/30/2020 bilateral complete breast ultrasound BREAST PARENCHYMAL COMPOSITION: There are scattered areas of fibroglandular density. FINDINGS: No suspicious mass or architectural distortion, malignant calcification, skin thickening or retraction or significant new or developing density is detected. IMPRESSION: 1. No mammographic evidence of malignancy 2. Routine annual mammographic screening is recommended BI-RADS Category 2: Benign finding(s). Reviewed, dictated and finalized at location A. JERKER
== END ==
PROVIDERS: PCP Nurse Practitioner; Visit Provider Nurse Practitioner
DX: N64.4 Mastodynia (principal)
CPT/HCPCS: 77062; 77066; G0279

== ENCOUNTER → 2023-11-13 10:43 | Outpatient (CLI) | payer OTHER, SELFPAY ==
--- NOTE | ~2023-11-13 | US_ITS ---
EXAMINATION: US right upper quadrant DATE: 11/13/2023 11:08 INDICATION: Elevated liver function tests, history of gallbladder polyp TECHNIQUE: Multiple grayscale and Doppler ultrasound images of the abdomen were obtained. COMPARISON: 04/10/2023 FINDINGS: Bowel gas obscures visualization of the pancreas. The visualized portions of the pancreas a re unremarkable. The liver demonstrates increased echogenicity, heterogenous echotexture, and decreas ed through transmission. No surface nodularity. Normal hepatopetal flow in the main portal vein. Ther e is a 4 mm polyp of the gallbladder. The gallbladder is otherwise normal with no abnormal wall thick ening, pericholecystic fluid or stones. The normal common bile duct measures 4 mm. There was no sonog raphic Mattson sign. IMPRESSION: 1. Diffuse hepatic steatosis. 2. Stable gallbladder polyp. Reviewed, dictated and finalized at location B. [employer]IC
== END ==
DX: K76.0 Fatty (change of) liver, not elsewhere classified (principal); K82.4 Cholesterolosis of gallbladder; G35 Multiple sclerosis; Z79.899 Other long term (current) drug therapy; Z51.81 Encounter for therapeutic drug level monitoring
CPT/HCPCS: 76705

== ENCOUNTER 2024-01-08 16:14 | Outpatient (CLI) | payer OTHER, SELFPAY ==
--- NOTE | ~2024-01-08 | CT_ITS ---
EXAMINATION: CT abdomen pelvis wo con DATE: 01/08/2024 17:01 INDICATION: Left abdominal and pelvic pain. Dorsalgia. TECHNIQUE: Computed tomography (CT) of the abdomen and pelvis was performed without intravenous contr ast. Automated exposure control and iterative reconstruction technique were employed. The dose-length product was 555.52 mGy-cm. COMPARISON: None. FINDINGS: The visualized portions of the lung bases demonstrate mild atelectasis. No pleural effusion . The heart size is normal. No pericardial effusion. There is diffuse hepatic steatosis. The gallblad lesli is contracted. The spleen, pancreas, adrenal glands, and kidneys are normal. There is no urolithi asis. There is an intrauterine device in expected position. There are no dilated loops of bowel. The appendix is normal. There are no pathologically enlarged lymph nodes. There is no free intraperitonea l fluid. There is mild lumbar spondylosis. IMPRESSION: 1. Diffuse hepatic steatosis. Reviewed, dictated and finalized at location E.
== END 2024-01-08 16:15 | disposition home or self-care (01) ==
LOC: ANHIMG 16:14
PROVIDERS: PCP Internal Medicine; Visit Provider Clinical Nurse Specialist
DX: M54.9 Dorsalgia, unspecified (principal); K76.0 Fatty (change of) liver, not elsewhere classified
CPT/HCPCS: 74176

== ENCOUNTER 2024-01-11 18:51 | Emergency (ER) | payer OTHER, SELFPAY ==
[2024-01-11 19:04] VITALS: BP 151/94; PULSE 73; RESP 16; TEMP 36; O2SAT 100
--- NOTE | 2024-01-11 19:27 | ED_ITS ---
HPI - General Adult General Chief complaint: Unspecified Stated complaint: Elevated BP Time Seen by Provider: 01/11/24 19:27 Source: patient Mode of arrival: ambulatory Limitations: no limitations History of Present Illness HPI narrative: 48-year-old female presents for blood pressure check. Patient reports intermittent headaches for the past week. Saw her primary care physician on Saturday for left-sided low back pain. Her blood pressure was elevated at that appointment but her primary care physician told her it was probably due to her back pain. 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 She thinks that she has high blood pressure and needs to be started on medication. Back pain has resolved. Denies chest pain, shortness of breath. No headache at this time. Is taking ibuprofen when she does have a headache. Has a history of MS. Has appointment with her neurologist on Saturday. Patient states she is not having any symptoms concerning that her MS is exacerbated. Ambulatory with steady gait. No dizziness, vision changes, fatigue. Denies nausea vomiting diarrhea. All systems reviewed and negative except as noted above. Related Data Home Medications Medication Instructions Recorded Confirmed ozanimod 0.92 mg capsule (Zeposia) See Rx Instructions PO .COMPLEX 08/01/22 01/11/24 fish oil 400 mg-flaxseed 400 1 cap PO DAILY 01/06/24 01/11/24 mg-prim,blk tow picker,borag oils 200 mg capsule levonorgestrel 21 mcg/24 hours (8 See Rx Instructions .Route .COMPLEX 01/11/24 01/11/24 yrs) 52 mg intrauterine device (Mirena) Allergies Allergy/AdvReac Type Severity Reaction Status Date / Time No Known Allergies Allergy Unknown Verified 01/11/24 19:07 Review of Systems Review of Systems: CONSTITUTIONAL: Denies fever, chills, or sweats. EYES: Denies visual changes, redness, or discharge. ENT: Denies rhinorrhea, congestion, sore throat, or otalgia. CARDIOVASCULAR: Denies chest pain, palpitations, or edema. RESPIRATORY: Denies cough or dyspnea. GASTROINTESTINAL: Denies abdominal pain, nausea, vomiting, or diarrhea. GENITOURINARY: Denies dysuria or hematuria. SKIN: Denies rash or itching. MUSCULOSKELETAL: Denies back pain, joint pain, or myalgia. NEUROLOGIC: Reports intermittent headache. Denies numbness, or weakness. PSYCHIATRIC: Denies anxiety or depression. All other systems reviewed are negative, except as documented in HPI. [facility] Past Medical History Medical History Back pain Dermatitis HTN (hypertension) Multiple sclerosis Myalgia Obesity Varicose veins of lower extremity Vitamin deficiency Surgical History Surgical History History of thyroidectomy Family History Family History Father Hypertension Mother Hypertension Osteoarthritis Social History Social History Social History: Caffeine-Tea Smoking status: Never smoker Alcohol intake: current Drinks per week: 2 Alcohol use details: occasional Substance use: never Substance use type: does not use Lack of Transportation: No Lack of Food: Often True Current Housing: I Have Housing Concerned About Future Housing: No Difficulty Paying Gas/Electric Bills: No Difficulty Paying for Meds: No Currently Unemployed: No Education: Decline to Answer Difficulty w/ Childcare or Family Care: No Living arrangements: with family Gender identity (if verbalized by the patient): Female Spiritual care concerns: No Comments At time of signature, agree with nursing past medical, surgical, social and family history. There is no relevant family history pertinent to the presenting complaint. Exam Narrative: GENERAL: This is a well-nourished, well-developed patient, in no apparent distress. HEAD: normocephalic, atraumatic. EYES: PERRL. Sclera clear/white. Vision is grossly intact. extraocular movement intact EARS: External ears normal, auditory canals clear and without drainage, TMs normal without perforation. Hearing grossly intact. NOSE: External nose normal with no obvious nasal discharge, nares without redness, no rhinorrhea. THROAT: Mucous membranes moist, posterior pharynx clear. NECK: Neck supple, non-tender without lymphadenopathy, masses or thyromegaly. CARDIOVASCULAR: Regular rate and rhythm without murmurs, gallops, or rubs. RESPIRATORY: Clear to auscultation. Breath sounds equal bilaterally. No wheezes, rales, or rhonchi. SKIN: warm, Dry, intact with no suspicious lesions or rash, good texture and turgor. NEURO: awake, alert, and oriented to person, place and time. There were no obvious focal neurologic abnormalities. EXTREMITIES: No joint tenderness, effusion, or edema noted. Course Course Level of Care: Express Care Visit Vital Signs Vital signs: Vital Signs Temperature 36.0 C L 01/11/24 19:04 Pulse Rate 73 01/11/24 19:04 Respiratory Rate 16 01/11/24 19:04 Blood Pressure 151/94 H 01/11/24 19:04 Pulse Oximetry 100 01/11/24 19:04 Oxygen Delivery Room Air 01/11/24 19:04 Temperature 36.0 C L 01/11/24 19:04 Pulse Rate 73 01/11/24 19:04 Respiratory Rate 16 01/11/24 19:04 Blood Pressure 148/92 H 01/11/24 19:37 Pulse Oximetry 100 01/11/24 19:04 Oxygen Delivery Room Air 01/11/24 19:04 reviewed Medical Decision Making MDM Narrative Medical decision making narrative: manually checked patient's blood pressure 148/92. No headache at this time. Denies chest pain or shortness of breath. Has appointment with her neurologist on Saturday. Recommend that she tension headaches to her neurologist. Also recommend on Saturday she call and schedule follow-up appointment her primary care physician to further Evaluate her blood pressure concerns. Patient is aware of diagnosis, understands and agrees to treatment plan. Anticipatory guidance given. Patient agrees to follow-up as directed and is aware of reasons to seek care at the emergency department. Portions of this record may have been created with voice recognition software Vital Signs Vital Signs: Vital Signs Temperature 36.0 C L 01/11/24 19:04 Pulse Rate 73 01/11/24 19:04 Respiratory Rate 16 01/11/24 19:04 Blood Pressure 151/94 H 01/11/24 19:04 Pulse Oximetry 100 01/11/24 19:04 Oxygen Delivery Room Air 01/11/24 19:04 Temperature 36.0 C L 01/11/24 19:04 Pulse Rate 73 01/11/24 19:04 Respiratory Rate 16 01/11/24 19:04 Blood Pressure 148/92 H 01/11/24 19:37 Pulse Oximetry 100 01/11/24 19:04 Oxygen Delivery Room Air 01/11/24 19:04 Discharge Plan Discharge Clinical Impression: Elevated blood pressure reading Patient Disposition: Home, Self-Care Condition: Stable Instructions: Hypertension (ED) Additional Instructions: Your blood pressure was 148/92 today. Call and schedule a follow up appointment with your primary care doctor for further evaluation. Take tylenol as needed for headache. If you have severe pain, chest pain or shortness of breath go to the ER. Prescriptions: No Action Mirena 21 mcg/24 hours (8 yrs) 52 mg Intrauterine Device See Rx Instructions .ROUTE .COMPLEX Rx Instructions: intrauterinely Zeposia 0.92 mg capsule See Rx Instructions PO .COMPLEX Patient Comments: TAKES AT HS Rx Instructions: take per package directions orally; fish,flaxseed oil-e.prim-bcurr 400-400-200 mg capsule 1 cap PO DAILY lisinopril 5 mg tablet 5 mg PO DAILY Qty: 90 0RF Rx Instructions: needs appointment. last refill until seen Follow-up/Referrals: Taylor Rapp NP [Primary Care Provider] - Stand Alone Forms: Work/School Release IP Time of Disposition: 19:39
[2024-01-11 19:37] VITALS: BP 148/92
== END 2024-01-11 19:42 | disposition home or self-care (01) ==
PROVIDERS: Emergency Provider Nurse Practitioner Family; PCP Nurse Practitioner
DX: R03.0 Elevated blood-pressure reading, without diagnosis of hypertension (principal); I10 Essential (primary) hypertension; G35 Multiple sclerosis; E66.9 Obesity, unspecified; Z68.32 Body mass index [BMI] 32.0-32.9, adult; E89.0 Postprocedural hypothyroidism
CPT/HCPCS: 99211; G0463

== ENCOUNTER 2024-09-14 07:16 | Outpatient (CLI) | payer OTHER, SELFPAY ==
--- NOTE | ~2024-09-14 | MM_ITS ---
EXAMINATION: MM screening tiffanie BI w pete HISTORY: Screening TECHNIQUE: Craniocaudal and mediolateral oblique 3-D tomosynthesis images were obtained and synthetic 2-D images were generated. CAD analysis was submitted and interpreted. COMPARISON: Examination was compared with multiple prior studies performed most recently on 3 and dating back to 06/15/2020 BREAST PARENCHYMAL COMPOSITION: There are scattered areas of fibroglandular density. FINDINGS: Stable parenchymal pattern without suspicious microcalcifications, architectural distortion, discrete masses or significant asymmetry. IMPRESSION: 1. No mammographic evidence of malignancy. 2. Recommend routine screening mammography in one year. BI-RADS Category 1: Negative examination. Reviewed, dictated and finalized at location A. 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
== END 2024-09-14 07:17 | disposition home or self-care (01) ==
LOC: MICIMG 07:18
PROVIDERS: PCP Nurse Practitioner; Visit Provider Nurse Practitioner
DX: Z12.31 Encounter for screening mammogram for malignant neoplasm of breast (principal)
CPT/HCPCS: 77063; 77067

== ENCOUNTER 2024-11-09 19:33 | Emergency (ER) | payer OTHER, SELFPAY ==
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
--- OUTSIDE RECORDS SUMMARY | 2024-11-09 19:36 | XMS_ITS | Encounter Summary ---
Author Organization [facility] Address [address] [place] [address] Phone Care Team Providers Care Bolt Cutter Name Role Phone Matheus Cavanaugh DO Primary Care Provider [phone] Encounter Details Date Type Department Care Team (Late st Contact Info) Description 11/13/2023 Orders Only [facility] Scanning, Provider Social History Tobacco Use Types Packs/Day Years Used Date Smoking Tobacco: Never Comments Unknown Sex and Gender Information Value Date Recorded Sex Assigned at Not on file 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 Gender Identity Not on file Sexual Orientation Not on file documented as of this encounter Plan of Treatment Not on file documented as of this encounter Procedures Procedure Name Priority Date/Time Associated Diagnosis Comments SCAN - RADIOLOGY/IMAGING 11/13/2023 documented in this encounter Results * SCAN - RADIOLOGY/IMAGING (11/13/2023) Anatomical Region Laterality Modality Other us Provider Scanning Final Result documented in this encounter Visit Diagnoses Not on filedocumented in this encounter Care Teams Bolt Cutter Relationship Specialty Start Date End Date Matheus Cavanaugh DO PCP - General Internal Medicine 09/07/21 documented as of this encounter
--- OUTSIDE RECORDS SUMMARY | 2024-11-09 19:36 | XMS_ITS | Data Portability ---
Author Organization [facility] [place] Address [address] [place] [address] [place] [address] Care Team Providers Care Credit Support Counselor Name Role Phone MICHEAL COOK Primary Care Provider Assessment Encounter Date Assessment Date Assessment LastModified by Organization Details LastModified Time 08/07/2023 08/07/2023 Annual gynecological exam performed. Patient will come back in a year unless there are new symptoms. [email or web address] Not available 08/07/2023 14:39:22 09/24/2024 09/24/2024 Annual gynecological exam performed. Patient will come back in a year unless there are new symptoms. [email or web address] Not available 09/22/2024 09:47:24 Plan of Treatment Reminders Order Date Submit Date Provider Last Modified By Organization Details Last Modified Time Details Appointments None recorded. Lab urinalysis, dipstick 2023 024 [email or web address] 1 [address], [address], [place], [address], 4 12:29:43 culture, urine 2023 024 Health system (Lab), [address], [place], [address], 4 03:08:29 urinalysis, dipstick 2023 024 [email or web address] [facility], [address], [place], [address], 4 13:51:27 Referral None recorded. Procedures None recorded. Surgeries None recorded. Imaging MAMMO, screening, digital, bilateral 2024 025 [facility], [address], [place], [address], 5 15:19:17 US, transvagina l 2022 023 [email or web address] [facility], [address], [address], [place], [address], 3 16:34:13 MAMMO, diagnostic, digital, bilateral [address] [facility], [address], [place], [address], 4 16:09:15 US, pelvis, complete [address], [address], [place], [address], 4 16:09:15 Medication Orders Cipro 500 mg tablet 2023 024 [facility] [id number] [facility], [address], [place], [address], 4 09:47:47 Diflucan 150 mg tablet 2023 024 [facility] [address] [facility], [address], [place], [address], 4 09:48:45 clotrimazol e-betametha sone 1 %-0.05 % topical cream 2023 025 [facility] [address] [facility], [address], [place], [address], 5 14:29:45 Macrobid 100 mg capsule 2023 024 [email or web address] 1 [facility] [address] [facility], [address], [place], [address], 12:21:23 Patient TargetsNo targets recorded. Patient InstructionsNo instructions recorded. Reason for Referral None Reported. Results Created Date Observation Date Name Description Value Unit Range Abnormal Flag Note LastModifiedBy Organization Detail LastModifiedTime 10/11/19 24 10/11/2023 urina lysis , dipst ick Protein trace Not Available [facility] [address], [place], [address], 10/11/2023 13:42:38 10/11/19 24 10/11/2023 urina lysis , dipst ick pH 5 Not Available [facility] [address], [place], [address], 10/11/2023 13:42:38 10/11/19 24 10/11/2023 urina lysis , dipst ick Blood +++ Not Available [facility] [address], [place], [address], 10/11/2023 13:42:38 10/11/19 24 10/11/2023 urina lysis , dipst ick Specific Blackwell 1.025 Not Available [facility] [address], [place], [address], 10/11/2023 13:42:38 09/12/20 24 2024 urina lysis , dipst ick Leukocytes +2 Not Available [facility] [address], [place], [address], 2024 12:28:43 09/12/20 24 2024 urina lysis , dipst ick Nitrite normal Not Available [facility] [address], [place], [address], 2024 12:28:43 09/12/20 24 2024 urina lysis , dipst ick Urobilinogen normal Not Available [facility] qing [address], [place], [address], 2024 12:28:43 09/12/20 24 2024 urina lysis , dipst ick Protein trace Not Available [facility] [address], [place], [address], 2024 12:28:43 09/12/20 24 2024 urina lysis , dipst ick pH 6 Not Available [facility] [address], [place], [address], 2024 12:28:43 09/12/20 24 2024 urina lysis , dipst ick Blood trace Not Available [facility] [address], [place], [address], 2024 12:28:43 09/12/20 24 2024 urina lysis , dipst ick Specific Blackwell 1.020 Not Available [facility] annie [address], [place], [address], 2024 12:28:43 09/12/20 24 2024 urina lysis , dipst ick Ketone normal Not Available [facility] [address], [place], [address], 2024 12:28:43 09/12/20 24 2024 urina lysis , dipst ick Bilirubin normal Not Available [facility] [address], [place], [address], 2024 12:28:43 09/12/20 24 2024 urina lysis , dipst ick Glucose normal Not Available [facility] [address], [place], [address], 2024 12:28:43 09/12/20 24 2024 urina lysis , dipst ick Appearance normal Not Available Amparo maria [address], [place], [address], 2024 12:28:43 09/12/20 24 2024 urina lysis , dipst ick Color normal Not Available [facility] [address], [place], [address], 2024 12:28:43 09/14/20 24 09/14/2024 CULTU RE: URINE result report SEE RESULT S BELOW abnormal Test: Cultu re: Urine Speci men Sourc e: Urine - Clean Catch Speci men Type: Urine Speci men Date: 09/14 0808 Resul t Date: 09/16 0205 Resul t Statu s: Final resul t Abnor mal: Yes Resul matag Lab: [facility] [address] [facility] [address] Tel: CULTU RE ----- ----- ----- --- >100, 000 CFU/m l Staph yloco ccus sapro phyti cus (Abno rmal) Staph yloco ccus sapro phyti cus typic ally respo nds to urine jos ntrat ions of antim icrob ials used to treat acute , uncom plica reese urina ry tract infec tions (nitr ofura ntoin , trime thopr im/de oliveira lfame thoxa zole or fluro jovana lones ). Not Available [facility] (Lab) [address], [place], [address], 09/16/2024 03:08:27 08/19/20 23 08/19/2023 US, trans vagin al No observ ation record ed. [email or web address] [facility] [address], [place], [address], 10/11/2023 13:55:35 08/19/20 23 08/19/2023 US, trans vagin al No observ ation record ed. [email or web address] [address], [place], [address], 10/11/2023 13:55:35 09/14/20 24 09/14/2024 MAMMO , scree tien, bilat eral No observ ation record ed. [email or web address] [facility] [address], [place], [address], 09/17/2024 16:54:39 Result Notes None recorded. Problems Name Problem SNOMED Code Status Onset Date Resolution Date Notes Provider Name and Address Organization Details Recorded Time Disorder of breast 88265962 Completed 201405/30/2021 Disorder of breast, unspecifi ed;Practi ce ID: 0001 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 15:59:[address] Concept Completed 201605/30/2021 Encntr for head shipper exam (general) (routine) w/o abn findings; Practice ID: 0001 Chrissy Ny [facility] 15:59:37 Screenin g for malignan t neoplasm of rectum Completed 201605/30/2021 Encounter for screening for malignant neoplasm of rectum;Pr actice ID: 0001 Chrissy mendoza [facility] 15:59:32 Pregnanc y test negative [id number] Completed 201605/30/2021 Encounter for test, result negative; Practice ID: 0001 Chrissy Ny [facility] 1 15:59:29 Finding of regulari ty of menstrua l cycle Completed 201605/30/2021 Irregular menstruat ion, unspecifi ed;Practi ce ID: 0001 Chrissy Ny [facility] 15:59:24 Insertio n of intraute rine contrace ptive device Completed 201805/30/2021 Encounter for insertion of intrauter ine contracep tive device;Pr actice ID: 0001 Chrissy Ny [facility] 15:59:26 Contrace ptive sheath status [id number] Completed 201805/30/2021 Encounter for routine checking of intrauter ine contracep dev;Pract ice ID: [address] [facility] 15:59:[address] Concept Completed 201605/30/2021 Encntr for general adult medical exam w/o abnormal findings; Recorded Elsewhere : No [facility] So [facility]ce: EHR Chron ic: N Practic e ID: 0001 Bill able Time: 08:00:00 AM Chrissy Ny [facility] 15:59:34 Radiolog ic finding [id number] Completed 201605/30/2021 Oth abn and inconclus damion findings on dx imaging of breast;Re corded Elsewhere : No [facility]ati [facility]: [facility] So urce: EHR Chron ic: N Practic e ID: 0001 Bill able Time: 09:35:58 AM Chrissy Ny [facility] 15:59:14 Dysfunct ional uterine bleeding Completed 201205/30/2021 Other disorders of menstruat ion and other abnormal bleeding from female genital tract;Rec orded Elsewhere : No Locati on: [facility] So urce: EHR Chron ic: N Practic e ID: 0001 Bill able Time: 03:45:00 PM Chrissy Ny [facility] 1 15:59:22 Speciali zed medical examinat ion Completed 201105/30/2021 Gynecolog ical Examinati on;Record ed Elsewhere : No Locati [facility]: [facility] So urce: EHR Chron ic: N Practic e ID: 0001 Bill able Time: 03:30:00 PM Chrissy Ny [facility] 15:59:39 Irregula r intermen strual bleeding [id number] Completed 201205/30/2021 Metrortreasure mckeon;Recor ded Elsewhere : No Locati [facility]: [facility] So urce: EHR Chron ic: N Practic e ID: 0001 Bill able Time: 03:30:00 PM Chrissy Ny [facility] 15:59:27 Screenin g for malignan t neoplasm of cervix Completed 201105/30/2021 Screening for malignant neoplasms of the cervix;Re corded Elsewhere : No Locati [facility]: [facility] So [facility]ce: EHR Chron ic: N Practic e ID: 0001 Bill able Time: 03:30:00 PM Chrissy Ny [facility] 15:59:30 Uterovag inal prolapse [id number] Completed 201205/30/2021 Cystocele with Prolapse; Recorded Elsewhere : No Locati [facility]: [facility] So [facility]ce: EHR Chron ic: N Practic e ID: 0001 Bill able Time: 03:45:00 PM Chrissy Ny [facility] 15:59:41 Adult health examinat ion Completed 201305/30/2021 ROUTINE MEDICAL EXAM;Shen rded Elsewhere : No [facility]ati [facility] So [facility]ce: EHR Chron ic: N Practic e ID: 0001 Bill able Time: 02:45:00 PM Chrissy Ny [facility] 15:59:10 Clinical finding Completed 201805/30/2021 Presence of (intraute rine) contracep tive device;Re corded Elsewhere : No [facility]ati [facility]: [facility] So [facility]ce: EHR Chron ic: N Practic e ID: 0001 Bill able Time: 09:30:00 AM Chrissy Ny [facility] 15:59:15 Amenorrh ea [id number] Completed 201005/30/2021 AMENORRHE A;Practic e ID: 0001 Chrissy Ny [facility] 15:59:12 Cyst of ovary [id number] Completed 201005/30/2021 OVARIAN CYST;Prac wyatt ID: 0001 Chrissy Ny [facility] 15:59:19 Problem Notes None recorded. Procedures Surgical History Date Name Laterality Status Provider Name and Address Organization Details Recorded Time 09/14/20 24 Date of Last Mammogram completed Chantelle Frost [facility] 09/22/2024 09:49:02 08/07/20 23 Date of Last Pap Smear completed Roxana Cheng [facility] 10/11/2023 13:22:43 09/23/19 23 Date of Last Colonoscopy completed LILIA Napoles [facility] 09/24/2024 14:31:17 09/23/19 23 Colonoscopy completed Kourtney Gale [facility] 10/01/2024 09:36:47 07/08/20 13 endometrial biopsy completed Kourtney Gale [facility] 10/01/2024 09:43:29 09/23/19 06 Thyroid Surgery completed Kourtney Gale [facility] 2024 12:28:11 Imaging Results Imaging Date Name Status LastModified by Organization Details LastModified Time 08/19/2023 US, transvaginal completed [email or web address] [facility] [facility] [address], [place], [address], 10/11/2023 13:55:35 08/19/2023 US, transvaginal completed [email or web address] [address], [place], [address], 10/11/2023 13:55:35 09/14/2024 MAMMO, screening, bilateral completed [email or web address] [facility] [address], [place], [address], 09/17/2024 16:54:39 Procedure Notes None recorded. Medical Equipment None Reported. Allergies No known drug allergies Medications Name Sig Start Date Stop Date Status Note LastModified by Organization Details LastModified Time amoxicill in 500 mg capsule TAKE 1 CAPSULE BY MOUTH THREE TIMES A DAY 09/12 completed Not Available Not Available Not Available Mirena 21 mcg/24 hr (up to 8 years) 52 mg intrauter ine device active Prescrib ed Elsewher e: Yes Loca tion: [facility] odify By: trina cunha DateTime : 01/08/20 09:30:00 AM Not Available Not Available Not Available fluconazo le 150 mg tablet 09/22 completed Not Available Not Available Not Available hydrocort isone 1 % topical ointment apply by topical route 2 times every day to the affected area(s) 08/16 completed Prescrib ed Elsewher e: No Locat ion: [facility] odify By: smcaley Elton garcía DateTime : 07/16/20 13 02:15:00 PM Not Available Not Available Not Available fluconazo le 200 mg tablet TAKE 1 TABLET BY MOUTH EVERY OTHER DAY FOR 3 DOSES 10/11 completed Not Available Not Available Not Available prednison e 20 mg tablet PLEASE SEE ATTACHED FOR DETAILED DIRECTIO NS 10/11 completed Not Available Not Available Not Available betametha sone, augmented 0.05 % topical cream APPLY TOPICALL Y TO THE HANDS, FEET, AND LEFT LEG DAILY NEEDED FOR ALLERGIC REACTION /RASH 05/31 completed Not Available Not Available Not Available prochlorp erazine maleate 10 mg tablet TAKE 1 TABLET BY MOUTH TWICE A DAY NEEDED (FOR HEADACHE ) 10/11 completed Not Available Not Available Not Available ciproflox acin 500 mg tablet 09/22 completed Not Available Not Available Not Available triamcino lone acetonide 0.1 % topical cream APPLY TOPICALL Y TWICE A DAY 10/11 completed Not Available Not Available Not Available amoxicill in 500 mg tablet TAKE 1 TABLET BY MOUTH EVERY 8 HOURS UNTIL GONE 05/30 completed Not Available Not Available Not Available nystatin- triamcino lone 100,000 unit/gram -0.1 % topical ointment APPLY TO THE AFFECTED AREA(S) BY TOPICAL ROUTE 2 TIMES PER DAY FOR 7 DAYS NEEDED 10/11 completed Not Available Not Available Not Available amoxicill in 875 mg tablet TAKE 1 TABLET BY MOUTH TWICE A DAY UNTIL ALL TABS ARE TAKEN 05/31 completed Not Available Not Available Not Available alprazola m 0.25 mg tablet TAKE 1-2 TABLETS BY MOUTH 30 MINUTES PRIOR TO MRI. HAVE SOMEONE DRIVE YOU HOME AFTER. 06/23 completed Not Available Not Available Not Available omeprazol e 10 mg capsule,d elayed release TAKE 1 CAPSULE BY MOUTH EVERY DAY 10/11 completed Not Available Not Available Not Available clotrimaz ole-betam ethasone 1 %-0.05 % topical cream APPLY TO THE AFFECTED AND SURROUND ING AREAS OF SKIN BY TOPICAL ROUTE 2 TIMES PER DAY IN THE MORNING AND EVENING FOR 2 WEEKS 09/24 completed Not Available Not Available Not Available lisinopri l 10 mg tablet TAKE 1 TABLET BY MOUTH EVERY DAY 09/12 completed Not Available Not Available Not Available prednison e 50 mg tablet TAKE 3 TABLETS (150 MG) BY MOUTH 3 (THREE) TIMES A DAY 06/23 completed Not Available Not Available Not Available lisinopri l 30 mg tablet TAKE 1 TABLET BY MOUTH EVERY DAY active Not Available Not Available No t Available lisinopri l 5 mg tablet TAKE 1 TABLET BY MOUTH DAILY - NEEDS APPOINTM ENT. LAST REFILL UNTIL SEEN 09/12 completed Not Available Not Available Not Available gabapenti n 100 mg capsule TAKE 1 CAPSULE BY MOUTH TWICE A DAY NEEDED FOR POSTHERP ETIC NEURALGI A 08/27 completed Not Available Not Available Not Available ibuprofen 600 mg tablet TAKE 1 TABLET BY MOUTH EVERY 6 HOURS NEEDED FOR PAIN - TAKE WITH FOOD 06/23 completed Not Available Not Available Not Available Vitamin D2 1,250 mcg (50,000 unit) capsule take 1 capsule by oral route every week 12/05 completed Prescrib ed Elsewher e: No Locat ion: [facility] hidal[facility] odify By: trina Hidalgo ncounter DateTime : 11/13/19 01:57:32 PM Not Available Not Available Not Available Necon 0.5/35 (28) 0.5 mg-35 mcg tablet take 1 tablet by oral route every day 12/05 completed Prescrib ed Elsewher e: No Locat ion: [facility] odify By: genaro Hidalgo ncounter DateTime : 11/06/19 18 10:30:00 AM Not Available Not Available Not Available naproxen 500 mg tablet TAKE 1 TABLET BY MOUTH TWICE A DAY NEEDED FOR PAIN OR HEADACHE S 06/23 completed Not Available Not Available Not Available amoxicill in 875 mg-potass ium clavulana te 125 mg tablet TAKE 1 TABLET BY MOUTH TWICE A DAY 10/11 completed Not Available Not Available Not Available Vitamin D3 25 mcg (1,000 unit) tablet 09/24 completed Prescrib ed Elsewher e: Yes Loca tion: [facility] odify By: trina da silvauntnaheed DateTime : 12/06/19 19 08:30:00 AM Not Available Not Available Not Available Betsy 0.35 mg tablet take 1 tablet by oral route every day 01/07 completed Prescrib ed Elsewher e: No Locat ion: Marlenfernie [facility] odify By: trina Hidalgo ncounter DateTime : 12/06/19 19 08:30:00 AM Not Available Not Available Not Available Ortho-Cyc do (28) 0.25 mg-35 mcg tablet take 1 tablet by oral route every day 04/30 completed Prescrib ed Elsewher e: No Locat ion: [facility] odify By: cmedical Encount er DateTime : 06/25/20 13 03:30:00 PM Not Available Not Available Not Available nitrofura ntoin monohydra te/macroc rystals 100 mg capsule TAKE 1 CAPSULE BY MOUTH EVERY 12 HOURS WITH MEALS FOR 7 DAYS, FOR UTI. 09/12 completed Not Available Not Available Not Available Boostrix Tdap 2.5 Lf unit-8 mcg-5 Lf/0.5 mL intramusc ular syringe PHARMACY ADMINIST ERED 08/27 completed Not Available Not Available Not Available chlorhexi dine gluconate 0.12 % mouthwash SWISH 20 ML IN MOUTH GENTLY FOR 30 SECONDS EVERY 8 HOURS AND EXPECTOR ATE 05/31 completed Not Available Not Available Not Available lisinopri l 05/30 completed Not Available Not Available Not Available Vitamin D3 08/27 completed Not Available Not Available Not Available cholecalc iferol (vitamin D3) 1,250 mcg (50,000 unit) capsule TAKE 1 CAPSULE BY MOUTH WEEKLY 09/24 completed Not Available Not Available Not Available Zeposia 0.92 mg capsule active Not Available Not Available Not Available Flucelvax Quad (PF) 60 mcg (15 mcg x 4)/0.5 mL IM syringe PHARMACY ADMINIST ERED 08/27 completed Not Available Not Available Not Available Vitals Date Recorded Body weight Systolic blood pressure Diastolic blood pressure Provider Name and Address Organization Details Last Updated DateTime 08/07/2023 98673.48 g 131 mm[Hg] 88 mm[Hg] Chrissy Rangel [facility] 08/07/2023 14:40:48 Date Recorded Body height Body mass index (BMI) Body weight Systolic blood pressure Diastolic blood pressure Provider Name and Address Organization Details Last Updated DateTime 10/11/2023 154.94 cm 34 kg/m2 55687.63 g 131 mm[Hg] 83 mm[Hg] Roxana Cheng [facility] 13:28:25 Date Recorded Body height Body mass index (BMI) Body weight Systolic blood pressure Diastolic blood pressure Provider Name and Address Organization Details Last Updated DateTime 2024 154.94 cm 34 kg/m2 73700.63 g 146 mm[Hg] 90 mm[Hg] Kourtney Gale [facility] 12:21:08 Date Recorded Body height Provider Name an d Address Organization Details Last Updated DateTime 09/24/2024 154.94 cm Chantelle Frost [facility] 09/24/2024 14:25:24 Date Recorded Body mass index (BMI) Body weight Systolic blood pressure Diastolic blood pressure Provider Name and Address Organization Details Last Updated DateTime 09/24/2024 34.1 kg/m2 68899.06 g 118 mm[Hg] 80 mm[Hg] LILIA Napoles [facility] 09/24/2024 14:29:05 Social History Question Answer Notes LastModified by Organizat ion Details LastModified Time Tobacco Smoking Status Never Smoker Not Available [facility] 07/26/2020 03:28:11 What Is Your Level Of Alcohol Consumption? Occasional [id number] Information not available 07/26/2020 If You Are , What Was Your Level Of Alcohol Consumption Prior To ? Occasional [id number] Information not available 07/26/2020 Are You Blind Or Do You Have Difficulty Seeing? No Information not available 05/30/2021 What Is Your Level Of Caffeine Consumption? Occasional Information not available 05/30/2021 In The 14 Days Before Symptom Onset, Have You Had Close Contact With A Laboratory-confir med COVID-19 While That Case Was Ill? No Information not available 10/11/2023 In The 14 Days Before Symptom Onset, Have You Had Close Contact With A Person Who Is Under Investigation For COVID-19 While That Person Was Ill? No Information not available 10/11/2023 Have You Been To An Area Known To Be High Risk For COVID-19? No Information not available 10/11/2023 Are You Deaf Or Do You Have Serious Difficulty Hearing? No Information not available 05/30/2021 What Type Of Diet Are You Following? REGULAR Information not available 05/30/2021 Do You Or Have You Ever Used E-cigarettes Or Vape? Never Used Electronic Cigarettes [id number] Information not available 07/26/2020 What Was The Date Of Your Most Recent Tobacco Screening? 2024 [email or web address] Information not available 2024 Do You Use Your Seat Belt Or Car Seat Routinely? Yes Information not available 05/30/2021 Do You Have Smoke And Carbon Monoxide Detectors In Your Home? Yes Information not available 05/30/2021 Do You Or Have You Ever Used Smokeless Tobacco? Never Used Smokeless Tobacco [id number] Information not available 07/26/2020 How Much Tobacco Do You Smoke? No [id number] Information not available 07/26/2020 Do You Feel Stressed (tense, Restless, Nervous, Or Anxious, Or Unable To Sleep At Night)? [id number] Information not available 05/30/2021 Do You Use Any Illicit Or Recreational Drugs? No Information not available 05/30/2021 Do You Use Sunscreen Routinely? Yes Information not available 05/30/2021 Sex: Unknown Functional Status Question Answer Note LastModified by Organizat ion Details LastModified Time Are you able to walk? [email or web address] Information not available 05/30/2021 What is your exercise level? Occasional Information not available 05/30/2021 Mental Status None recorded. Family History Relationship Description Onset Age of this Age Resolved Age Notes LastModified by Organization Details LastModified Time Mother Hypertensive disorder [email or web address] Not available 04/22 09:04:20 Father Hypertensive disorder [email or web address] Not available 04/22 09:04:20 Medical History Condition Response Allergies (Food, seasonal, environmental ) N Other N Blood Transfusion N Drug/Latex Allergies/Reactions N Breast Cancer N Dermatologic Disorders N Lung Disease N Defects or Inherited Disease N Breast Problem Y Gestational Diabetes N Hematologic disorders N Anesthesia Complications N History of STI N Deep Vein Thrombosis Y Polycystic ovary syndrome N Anxiety Disorder N Autoimmune disease N Arthritis N Infertility N Polyps N Acid Reflux (GERD) Y History of abnormal pap N Cancer N Stroke N Varicosities N Neurologic/Epilepsy Y Endometriosis N High Cholesterol N Headaches N Fibromyalgia N Kidney Disease N Heart Problems N Kidney or Bladder Problems N Thyroid Problems Y GI Problems N Eating Disorder N Anemia N Art (IVF or FET) N Psychiatric Illness N Ovarian Cancer N Diabetes N Pulmonary (TB, Asthma) N Hepatitis/Liver Disease N No Past Medical History N Eczema N Urinary Tract Infection N Abuse/Domestic Violence N Asthma N Trauma/Violence N Depression/ depression N Heart Disease N Pre-Eclampsia N Hypertension Y Osteoporosis N Thrombophilias N Gynecological History Statement/Question Response Abnormal Pap N Date of Last Mammogram 09/14/2024 Date of LMP STIs/STDs N HPV Vaccine N Current Control Method IUD Date of Last Colonoscopy 09/23/2022 Sexually Active? Y Menses Monthly N Date of Last Pap Smear 08/07/2023 Sexual Problems? N LMP Approximate Obstetrics History GPAL:G 2 P 2 0 0 2 Type Value Full Term 2 Living 2 Total 2 Past Encounters Encounter ID Performer Location Encounter Start Date Encounter Closed Date Diagnosis/Indication Diagnosis SNOMED-CT Code Diagnosis ICD10 Code Diagnosis Note [id number] Heavenly Ricks [facility] [address] [address] 04/21/2020 14:31:22 04/21/2020 15:28:58 Gynecologic examination [id number] Z01.419 Suggested Calcium with Vitamin D 1200-1500m g daily. Patient advised to get an annual flu shot in the fall and she could obtain at [facility] or [facility]. Also to obtain TDap vaccinatio n if you have not had one in the last 10 years. Recommend yearly mammograms . Encouraged monthly self breast exams. Encourage safe sexual practices, to use condoms and limit partners if not already in a monogamous relationsh ip. Engage in daily exercise of low impact aerobic exercise 45-60 minutes 4-5 times weekly. Avoid tobacco and illicit drugs as well as using moderation with alcohol intake less than 1-2 8 oz beverages daily. This lifestyle behavior pattern will lead to less health conditions and longer life span. If BMI greater than 25 weight watchers or dietary consult advised. All questions have been answered. Patient appears to understand informatio n, but if you have any questions please call or respond to this email. Pap/hpv defer x 3yrs unless otherwise indicated per asccp & patiet voices her insurance told her if normal paps that it is only covered for q3yrs unless medically indicated. Declined std screen mammo ordered [id number] Heavenly Ricks [facility] [address] [address] 08/27/2020 09:25:32 08/27/2020 10:11:25 Mastodynia of bilateral breasts [id number] N64.4 We agreed to start with US. Will see if dx mammo is required. Possibly f/u with specialist she saw prior to this. Time spent in visit is a total of 15 mins with at least 50% of visit consisting of counseling and review of plan of care. [id number] Heavenly Ricks , [facility] [address] [address] 05/31/2021 09:22:31 05/31/2021 10:25:00 Gynecologic examination [id number] Z01.419 Suggested Calcium with Vitamin D 1200-1500m g daily. Patient advised to get an annual flu shot in the fall and she could obtain at [facility] or [facility]. Also to obtain TDap vaccinatio n if you have not had one in the last 10 years. Recommend yearly mammograms . Encouraged monthly self breast exams. Encourage safe sexual practices, to use condoms and limit partners if not already in a monogamous relationsh ip. Engage in daily exercise of low impact aerobic exercise 45-60 minutes 4-5 times weekly. Avoid tobacco and illicit drugs as well as using moderation with alcohol intake less than 1-2 8 oz beverages daily. This lifestyle behavior pattern will lead to less health conditions and longer life span. If BMI greater than 25 weight watchers or dietary consult advised. All questions have been answered. Patient appears to understand informatio n, but if you have any questions please call or respond to this email. Pap/hpv defer x 3yrs unless otherwise indicated per asccp & patiet voices her insurance told her if normal paps that it is only covered for q3yrs unless medically indicated. Declined std screen mammo orderedIUD placed 01/07/2019 Screening mammography 24 810536 Z12.31 We will do a routine screening but can do US if see something on the screening. Unable to elicit this issue on exam today.Sugg ested Evening primrose oil to avoid monthly breast tenderness . [id number] Kourtney Gale [facility] [address] [address] 06/23/2022 09:44:14 06/26/2022 16:46:09 Gynecologic examination [id number] Z01.419 Suggested Calcium with Vitamin D 1200-1500m g daily. Patient advised to get an annual flu shot in the fall and she could obtain at [facility] or [facility] care clinic. Also to obtain TDap vaccinatio n if you have not had one in the last 10 years. Recommend yearly mammograms . Encouraged monthly self breast exams. Encourage safe sexual practices, to use condoms and limit partners if not already in a monogamous relationsh ip. Engage in daily exercise of low impact aerobic exercise 45-60 minutes 4-5 times weekly. Avoid tobacco and illicit drugs as well as using moderation with alcohol intake less than 1-2 8 oz beverages daily. This lifestyle behavior pattern will lead to less health conditions and longer life span. If BMI greater than 25 weight watchers or dietary consult advised. All questions have been answered. Patient appears to understand informatio n, but if you have any questions please call or respond to this email. Pap/hpv defer x 3yrs unless otherwise indicated per asccp & patiet voices her insurance told her if normal paps that it is only covered for q3yrs unless medically indicated. Pap/hpv sentSTD Screen declinedGe netic Screen discussedC olon Screen PCPDexa Screen naRoutine Labs PCPMammo ordered Screening mammography 24 865745 Z12.31 Vaginitis 37986880 N76.0 Having ext irritation , erythema, itching that is now starting to manifest internally .She recently started predinsone pack 3 days ago; sx's slowly started to present after starting this medication .She is having some increase in urinary frequency so we will assess her urine to r/o infection. Urinary symptoms [id number] 08 R39.9 [id number] OFELIA Álvarez [facility] [address] [address] 08/07/2023 14:28:42 08/07/2023 15:27:26 Gynecologic examination [id number] Z01.419 [facility] - mirena IUDIUD inserted 12/2018IUD strings non-visual ized todaypelvi c u/s ordered for IUD checkpap updatedSTI testing declineddi agnostic mammogram order given for breast tenderness encouraged to decrease caffeine intakecolo noscopy UTD pt ptUTD with PCPRTC for pelvic u/s Suggested Calcium with Vitamin D daily. Patient advised to get an annual flu shot in the fall and she could obtain at [facility] or [facility] care clinic. Also to obtain TDap vaccinatio n if you have not had one in the last 10 years. Recommend yearly mammograms . Encouraged monthly self breast exams. Encourage safe sexual practices, to use condoms and limit partners if not already in a monogamous relationsh ip. Engage in daily exercise of low impact aerobic exercise 45-60 minutes 4-5 times weekly. Avoid tobacco and illicit drugs as well as using moderation with alcohol intake less than 1-2 8 oz beverages daily. This lifestyle behavior pattern will lead to less health conditions and longer life span. If BMI greater than 25 dietary consult advised. All questions have been answered. Patient appears to understand informatio n, but if you have any questions please call or respond to this email. IUD check [id number] Z30. 431 Screening for malignant neoplasm of breast 594913785 Z12.39 Breast tenderness 999106 07 N64.4 [id number] [facility] [address] [address] 08/19/2023 09:24:09 08/19/2023 10:14:49 Mechanical complication of intrauterine contraceptive device [id number] T83.39XA [id number] Heavenly Ricks [facility] [address] [address] 10/11/2023 13:14:38 10/11/2023 13:58:02 Blood in urine 61405863 R31.9 Urinary symptoms 1677391 08 R39.9 Suspect UTI based on bladder pain with palpation on exam; urine dip trace of blood; pelvic fullness in area of bladder and dysuria.Ernesto watkins expresses that she would like for urine cx not to be sent this time unless her sx's continue and medication is not helping; which in that case we will complete a TVUS.The last urine culture sent cost her over $100 out of pocket. Counseled on medication R/B's, Most common side effects, & use. All questions were answered to patient satisfacti on. Rx sent Time spent in visit is a total of 21 mins with at least 50% of visit consisting of counseling and review of plan of care. [id number] Cristobal Watson MD [facility] [address] [address] 2024 11:42:16 09/14/2024 09:05:04 Urinary symptoms 961007958 R39.9 Vulvovaginitis 67372454 N76.0 49-year-ol d female with frequency, dysuria, urgency. She also has pain around the urethra. She has a positive urine dip. We agreed to treat for urinary tract infection. We also agreed to treat for yeast infection should there be yeast at the vaginal opening causing her pain. She has tenderness at the introitus of the vulva. We agreed to treat for urinary tract infection and vulvovagin itis. I prescribed medication s. She was given the risks, benefits, and alternativ es for the medication s. We talked about instructio ns and precaution s. [id number] SHLOMO ESPINOZA NP [facility] [address] [address] 09/24/2024 14:24:22 09/24/2024 15:19:16 Gynecologic examination 81515939 Z01.419 Annual gynecologi [place] exam performed. Patient will come back in a year unless there are new symptoms. Suggest Calcium with Vitamin D if not eating in diet. Patient advised to get annual flu shot. Recommend yearly physicals and perform monthly breast exams. Genetic testing is available for patients with family history of cancer. Engage in safe sexual practices, use condoms. Encouraged to have daily exercise. Avoid tobacco and illicit drugs, moderation of alcohol. If BMI greater than 25 dietary consult advised. If you have any questions please call or email. mammogram- UTD - order given, pt to schedule colon cancer screening - UTD PCP DEXA scan- n/a Pap smear- UTD (2022- WN), will repeat in 2025 per ASCCP guidelines laboratory evaluation - PCP STI testing - declined A Mirena IUD prevents for up to 8 years, and also helps with heavy periods for up to 5 years in women who choose an IUD for control. Screening mammography 24 873297 Z12.31 Health Concerns Section Related Observation LastModified by Organization Detai ls LastModified Time None Recorded Concern Status LastModified by Organization Details LastModified Time None Recorded Advance Directives Directive None Recorded Payers Encounter Date Sequence Insurance Name Policy Number Policy Mensah Covered Member ID Mensah Member ID Guarantor Name 08/07/2023 1 [facility] [id number] Jc K Jaime [id number] Sova K Jaime 08/19/2023 1 [facility] [id number] Jc K Jaime [id number] Sova K Jaime 10/11/2023 1 [facility] [id number] Jc K Jaime [id number] Sova K Jaime 2024 1 [facility] [id number] Jc K Jaime [id number] Sova K Jaime 09/24/2024 1 [facility] [id number] Jc K Jaime [id number] Sova K Jaime Notes Date Note Type Note Provider Name and Address Organization Details Recorded Time 3 text/html Annual GYNReported bypatient.Menstrual cycle:Normal menses Urinary symptoms:No hematuria; No incontinence Vulva:No genital lesion Vagina:Normal vaginal discharge Breast:No breast lump; No nipple discharge;Breast pain; breast tenderness on and off for years. Saw a breast specialist in 2019 for this with normal findings per pt. Drinks lots of caffeine daily Current Contraception:Satisfie d with current contraception; Intrauterine device (iud); mirena IUD (inserted 01/07/2019) Sexual complaints:No sexual complaints; No pain during intercourse; Normal libido Menopausal Symptoms:No menopausal symptoms; Normal vaginal lubrication Psychological symptoms:No depression; No anxiety; No PMDD Preventive measures:Encourage self breast examination; Encourage regular exercise; Encourage no tobacco use; Encourage regular mammograms starting age 40Notes:no hx of abnormal papsmammogram last 08/2022 OFELIA Álvarez [address], [place], [address], [facility] 08/07/2023 15:22:52 4 text/html Here today for progressively worsening dysuria/pelvic fullness/bladder pain that started this week. Neg pain of abd/pelvis/flankNeg GI sx'sNeg N/V/F/C/DNeg Vag d/c, odor, irritation, itchingMonogamous Heavenly Ricks, [facility]- [address], [place], [address], , [facility] 10/11/2023 13:57:44 4 text/html 49-year-old female with frequency, dysuria, urgency. She also has pain around the urethra. She has a positive urine dip. We agreed to treat for urinary tract infection. We also agreed to treat for yeast infection should there be yeast at the vaginal opening causing her pain. She has tenderness at the introitus of the vulva. We agreed to treat for urinary tract infection and vulvovaginitis. I prescribed medications. She was given the risks, benefits, and alternatives for the medications. We talked about instructions and precautions. Cristobal Watson MD [address], [place], [address], , [facility] 2024 14:21:16 5 text/html Annual GYNReported bypatient.Menstrual cycle:No cycles with IUD Urinary symptoms:No hematuria; No incontinence Vulva:No genital lesion Vagina:Normal vaginal discharge Breast:No breast pain; No breast lump; No nipple discharge Current Contraception:Satisfie d with current contraception; Intrauterine device (iud) Sexual complaints:No sexual complaints; No pain during intercourse; Normal libido Menopausal Symptoms:No menopausal symptoms; Normal vaginal lubrication Psychological symptoms:No depression; No anxiety; No PMDD Preventive measures:Encourage self breast examination; Encourage regular exercise; Encourage no tobacco use; Encourage regular mammograms starting age 40 Patient presents for annual well woman exam. Patient denies concerns today. SHLOMO ESPINOZA NP [address], [place], [address], , [facility] 09/24/2024 15:12:39 OBGyn Episode Ob Episode Information Episode Created Date Number of Fetuses Patient Bloodtype Patient rh Status Prepregnancy Weight lbs Domestic Partner Domestic Partner Phone Father Name Lockstitch Zipper Setter Status 04/22/20 20 1 CLOSED Fetus Data First Name Last Name Admitted to NICU Weight (g) Sex Living Outcome Pediatric Complications Fetus ID Race Codes Race Delivery Type 4082.32 8 F Full Term 3328 Vaginal Delivery Geovanny Calculation Initial Geovanny Date Initial Exam Date Initial Exam Provider Initial Ultrasound Date Last Menstrual Period Date Ultra Sound Weeks Gestation 0 Eighteen To Twenty Week Geovanny Update Ultra Sound Date Fundal Height At Umbil Quickening Date Ultra Sound Latest Weeks Gestation Final Geovanny Confirmed By Final Geovanny Confirmed Date Final Geovanny Date Ultra Sound Latest Days Gestation 0 0 Menstrual History Last Menstrual Date Menses Monthly On Bcp Conception Prior Menses Frequency Hcg Plus Date Menarche Onset Age Delivery Information Delivery Date Delivery Type Labor Anesthesia Weeks Gestation Incision Type Labor Labor Length Hrs Delivered By Post Complications Tubal Sterilization Discharge Date Comments 2 Discharge Information Feeding Method Contraceptive Method Maternal HG B and HCT Levels Ob Episode Information Episode Created Date Number of Fetuses Patient Bloodtype Patient rh Status Prepregnancy Weight lbs Domestic Partner Domestic Partner Phone Father Name Lockstitch Zipper Setter Status 04/22/20 20 1 CLOSED Fetus Data First Name Last Name Admitted to NICU Weight (g) Sex Living Outcome Pediatric Complications Fetus ID Race Codes Race Delivery Type 3175.14 4 M Full Term 3329 Vaginal Delivery Geovanny Calculation Initial Geovanny Date Initial Exam Date Initial Exam Provider Initial Ultrasound Date Last Menstrual Period Date Ultra Sound Weeks Gestation 0 Eighteen To Twenty Week Geovanny Update Ultra Sound Date Fundal Height At Umbil Quickening Date Ultra Sound Latest Weeks Gestation Final Geovanny Confirmed By Final Geovanny Confirmed Date Final Geovanny Date Ultra Sound Latest Days Gestation 0 0 Menstrual History Last Menstrual Date Menses Monthly On Bcp Conception Prior Menses Frequency Hcg Plus Date Menarche Onset Age Delivery Information Delivery Date Delivery Type Labor Anesthesia Weeks Gestation Incision Type Labor Labor Length Hrs Delivered By Post Complications Tubal Sterilization Discharge Date Comments 0 40 Discharge Information Feeding Method Contraceptive Method Maternal HG B and HCT Levels
--- OUTSIDE RECORDS SUMMARY | 2024-11-09 19:37 | XMS_ITS | Clinical Summary ---
Author Organization [facility] Address [address] [place] [address] Care Team Providers Care Program Development Specialist Name Role Phone Matheus Cavanaugh DO Primary Care Provider +1- [phone] Allergies No known active allergies Medications lisinopriL (PRINIVIL,ZESTR [place]) 30 mg tablet Take 1 tablet (30 mg total) by mouth daily 04/10/2024 Active Zeposia 0.92 mg capsule TAKE 1 CAPSULE BY MOUTH DAILY 30 capsule 5 07/31/2024 Active Active Problems Problem Noted Date Diagnosed Date Elevated liver enzymes 02/06/2024 Assessment & Plan (02/06/2024 11:01 AM CDT): Patient with transaminitis, starting on 11/05/23 (ALT 140, AST 76). Her most recent labs show some improvement but still elevated liver enzymes with ALT 81, AST 44. Hepatitis panel was unremarkable. US (based on provider's notes) showed hepatic steatosis. Patient also with HTN. I will obtain complete serology workup today to rule out all causes of chronic liver disease. Patient to also undergo FibroScan to determine degree of steatosis and if any fibrosis is present. I will ask office to obtain US report that was done at [facility]. Also recommended hepatitis A and B vaccine series as she does not appear to be immunized. I explained to patient that if she has hepatic steatosis, she is to work on weight loss. Discussed healthier food options and the need to resume physical exericse. I do not think the Zeposia is causing the transaminitis. She has been on this medication since June 2022 and has never had elevated liver enzymes until now. Serum ALT elevations are common (~5%) but were typically toro nd asynptomatic and returned to baseline values within a few months of stopping and often even with continuation of therapy. While chronic therapy with Zeposia can be associated with mild to moderate serum aminotransferase elevations, it has not been linked to any causes of clinically apparent liver injury. Patient can continue taking this as long as her liver enzymes are <3x ULN. We discussed the cause of increased hepatic fat, i.e., inadequate metabolism of fat delivered to the liver. When associated with elevated transaminases, this is metabolic dysfunction-associated steatohepatitis (MASH). This inflammation can lead to scar tissue or cirrhosis of the liver in approximately 30% of cases. Patients with cirrhosis are at risk for developing complications of portal hypertension, liver failure, , liver cancer, and/or the need for a liver transplant. Fat in the absence of elevated transaminases is non-alcoholic fatty liver disease. Routinely, this is not associated with inflammation or progressive hepatic fibrosis. The most effective treatment of fatty liver is weight loss, ideally achieved through a combination of caloric restriction and exercise. Aerobic exercise for 4 hours a week can accelerate fat metabolism and lead to improvement of liver tests. Weight loss of 5-10% of the current body weight usually leads to improvement in liver tests, liver inflammation, and a decrease in hepatic fibrosis. She will return to clinic in 1 year. Obesity (BMI 30.0-34.9) 02/06/2024 Assessment & Plan (02/06/2024 11:02 AM CDT): Patient with BMI 33.33 and HTN. Discussed the importance of weight loss. She declined meeting with corn shucker at this time. Discussed diet and the need to increase physical activity. Immunosuppression due to drug therapy 07/12/2023 High risk medication use 07/12/2023 Medication monitoring encounter 07/12/2023 Abnormal MRI 07/12/2023 Vitamin D deficiency 07/12/2023 Neurogenic bladder disorder 10/30/2022 Primary hypertension 06/12/2022 Multiple sclerosis 05/01/2022 Numbness 05/01/2022 Encounters Date Type Department Care Team Description 10/02/2024 Orders Only [facility] Gastroenterology [address] [facility] 12th [place] [address] [place] [address] Estella Baez Gallbladder polyp 10/02/2024 Telephone [facility] Gastroenterology [facility] [address] [place] [address] [place] [phone] Estella Baez Schedule Ultrasound 09/25/2024 Telephone [facility] Gastroenterology [address] [place] [address] [place] [id number] Cassie Morris, BRIANNE 08/17/2024 Telephone [facility] Multiple Sclerosis [address] [place] [phone] Marlen Bird, TOMMY 08/13/2024 Telephone [facility] Gastroenterology [address] [place] [address] [place] [address] [place] [phone] Estella Baez from Last 3 Months Immunizations Immunization Administration Dates Next Due Influenza, Quadrivalent, Roxana l Culture-based MDCK, Preservative Free, Antibiotic Free, Intramuscular 06/11/2022 Influenza, Quadrivalent, Spl it, Preservative Free, Intramuscular 06/29/2023,06/21/2021 Surgical History Surgery Date Site/Laterality Comments THYROIDECTOMY Medical History Medical History Date Comments HTN (hypertension) Myalgia Family History Medical History Relation Name Comments Hypertension Father Hypertension Mother Osteoarthritis Mother Relation Name Status Comments Father Mother Social History Tobacco Use Types Packs/Day Years Used Date Smoking Tobacco: Never Tobacco Cessation:Counseling Given: Not Answered Comments Unknown Sex and Gender Information Value Date Recorded Sex Assigned at Not on file Legal Sex Female 10:35 AM AVIONICS SAFETY INSPECTOR Gender Identity Not on file Sexual Orientation Not on file Obstetrics History Last Filed Vital Signs Vital Sign Reading Time Taken Comments Blood Pressure 138/82 05/28/2024 2:27 PM CDT Pulse 84 05/28/2024 2:27 PM CDT Temperature 36.3 C (97.3 F) 05/28/2024 2:27 PM CDT Respiratory Rate 16 02/06/2024 9:25 AM CDT Oxygen Saturation 97% 02/06/2024 9:25 AM CDT Inhaled Oxygen Concentration - - Weight 79.8 kg (176 lb) 05/28/2024 2:27 PM CDT Height 154.9 cm (5' 1 ) 05/28/2024 2:27 PM CDT Body Mass Index 33.25 05/28/2024 2:27 PM CDT Plan of Treatment Health Maintenance Due Date Last Done Comments Cervical Cancer Screening 1976 Colon Cancer Screening-Colonoscopy 1976 Depression Screening 1976 DTaP/Tdap/Td Vaccine (1 - Tdap) 1987 Regular Well Visit/Exam 18-64 1994 Pneumococcal vaccine <65 (1 of 2 - PCV) 1995 Zoster Vaccine (1 of 2) 1995 Breast Cancer Screening-Mammogram 09/04/2023 022, 04/22/2020 Covid-19 Vaccine (6 - 2023-2 5 season) 2024 06/29/2023, 08/31/2022, 03/14/2022, Additional history exists Influenza Vaccine (#1) 2024 , 06/11/2022, 06/21/2021 Hepatitis B Screening Completed 11/16/2023 Hepatitis C Screening Completed 11/16/2023 Procedures Procedure Name Priority Date/Time Associated Diagnosis Comments HEPATIC FUNCTION PANEL Routine 09/24/2024 2:29 PM AVIONICS SAFETY INSPECTOR Elevated liver enzymes Hepatic steatosis HEPATITIS C ANTIBODY Routine 11/16/2023 8:53 AM AVIONICS SAFETY INSPECTOR Multiple sclerosis (HCC) High risk medication use Immunosuppression due to drug therapy (HCC) Medication monitoring encounter Encounter for screening for viral disease from Last 3 Months or Most Recently Relevant to Health Maintenance Results * (ABNORMAL) Hepatic function panel (09/24/2024 2:29 PM AVIONICS SAFETY INSPECTOR) Protein, sr 6.9 6.0 - 8.5 g/dL [facility] - 01 Albumin 4.2 3.9 - 4.9 g/dL [facility] - 01 Bilirubin, Total 0.4 0.0 - 1.2 mg/dL [facility] - 01 Bilirubin, direct 0.13 0.00 - 0.40 mg/dL [facility] - 01 Alk phos 69 44 - 121 IU/L [facility] - 01 AST 40 0 - 40 IU/L [facility] - 01 ALT 75(H) 0 - 32 IU/L [facility] - 01 Blood 09/24/2024 2:29 PM AVIONICS SAFETY INSPECTOR 09/24/2024 Narrative [facility] - 09/25/2024 8:12 AM AVIONICS SAFETY INSPECTOR Performed at: [facility] [id number] Poultry Picking Machine Tender: Jeferson Bennett PhD, Phone: [phone] Pema Beltran NP LAB BLOOD ORDERABLES Fin al Result Performing Organization Address [facility] Co de Phone Number [facility] - * Hepatitis C antibody Blood (11/16/2023 8:53 AM AVIONICS SAFETY INSPECTOR) [facility] Hep C Ab Non Reactive Non Reactive [facility] - Comment: HCV antibody alone does not differentiate between previously resolved infection and active infection. Equivocal and Reactive HCV antibody results should be followed up with an HCV RNA test to support the diagnosis of active HCV infection. Blood 11/16/2023 8:53 AM AVIONICS SAFETY INSPECTOR 11/16/2023 Narrative [facility] - 11/17/2023 10:08 AM AVIONICS SAFETY INSPECTOR Performed at: [facility] [id number] Poultry Picking Machine Tender: Jeferson Bennett PhD, Phone: [phone] Brijesh Mendez MD LAB MICROBIOLOGY - GENERAL ORDERABLES Final Result Performing Organization Address City/[facility]/ZIP Co de Phone Number [facility] - from Last 3 Months or Most Recently Relevant to Health Maintenance Insurance [facility] H[facility]/PPO Address: [address] [address] [place] [address] [facility] H[facility]/PPO Address: [address] [address] [place] [address] [facility] CHO[facility] H[facility]/PPO Address: [address] [address] [place] [address] Care Teams Program Development Specialist Relationship Specialty Start Date End Date Matheus Cavanaugh DO PCP - General Internal Medicine 09/07/21
--- OUTSIDE RECORDS SUMMARY | 2024-11-09 19:37 | XMS_ITS | Referral Summary ---
Author Organization [facility] Address [address] [place] [address] Care Team Providers Care Manager Chemical Name Role Phone Matheus Cavanaugh DO Primary Care Provider +1- [phone] Encounters Date Type Department Care Team Description 10/02/2024 Orders Only [facility] Gastroenterology [address] [facility] Medicine [facility] [place] [address] [place] [address] Estella aBez Gallbladder polyp 10/02/2024 Telephone [facility] Gastroenterology [facility] Medicine [facility] [place] [address] [place] [address] Estella Baez Schedule Ultrasound 09/25/2024 Telephone [facility] Gastroenterology [facility] [address] [place] [address] [place] [address] Cassie Morris, BRIANNE 08/17/2024 Telephone [facility] Multiple Sclerosis [address] [place] [phone] Marlen Bird, TOMMY 08/13/2024 Telephone [facility] Gastroenterology [address] [facility] Medicine [facility] [place] [address] [place] [address] Estella Baez from Last 3 Months Allergies No known active allergies Medications lisinopriL (PRINIVIL,ZESTR [place]) 30 mg tablet Take 1 tablet (30 [...] obtain US report that was done at [facility]. Also recommended hepatitis A and B [...] of weight loss. She declined meeting with baggage agent at this time. Discussed diet and the need to increase physical activity. Immunosuppression due to drug therapy 07/12/2023 High risk medication use 07/12/2023 Medication monitoring encounter 07/12/2023 Abnormal MRI 07/12/2023 Vitamin D deficiency 07/12/2023 Neurogenic bladder disorder 10/30/2022 Primary hypertension 06/12/2022 Multiple sclerosis 05/01/2022 Numbness 05/01/2022 Immunizations Immunization Administration Dates Next Due Influenza, Quadrivalent, Roxana l Culture-based MDCK, Preservative Free, Antibiotic Free, Intramuscular 06/11/2022 Influenza, Quadrivalent, Spl it, Preservative Free, Intramuscular 06/29/2023,06/21/2021 Social History Tobacco Use Types Packs/Day Years Used Date Smoking Tobacco: Never Tobacco Cessation:Counseling Given: Not Answered Comments Unknown Sex and Gender Information Value Date Recorded Sex Assigned at Not on file Legal Sex Female 10:35 AM CAGER OPERATOR Gender Identity Not on file Sexual Orientation Not on file Last Filed Vital Signs Vital Sign Reading [...] 05/28/2024 2:27 PM CDT Plan of Treatment Not on file Procedures Procedure Name Priority Date/Time Associated Diagnosis Comments HEPATIC FUNCTION PANEL Routine 09/24/2024 2:29 PM CAGER OPERATOR Elevated liver enzymes Hepatic steatosis HEPATITIS C ANTIBODY Routine 11/16/2023 8:53 AM CAGER OPERATOR Multiple sclerosis (HCC) High risk medication use Immunosuppression due to drug therapy (HCC) Medication monitoring encounter Encounter for screening for viral disease from Last 3 Months or Most Recently Relevant to Health Maintenance Results * (ABNORMAL) Hepatic function panel (09/24/2024 2:29 PM CAGER OPERATOR) Pathologist [facility] Protein, sr 6.9 6.0 - 8.5 g/dL [...] [facility] - 01 Blood 09/24/2024 2:29 PM CAGER OPERATOR 09/24/2024 Narrative [facility] - 09/25/2024 8:12 AM CAGER OPERATOR Performed at: [facility] [id number] Bi Technical Lead: Jeferson Bennett PhD, Phone: [phone] Pema Beltran NP LAB BLOOD ORDERABLES Fin al Result [facility] - 01 * Hepatitis C antibody Blood (11/16/2023 8:53 AM CAGER OPERATOR) Pathologist [facility] Hep C Ab Non Reactive Non Reactive [facility] - 01 Comment: HCV antibody alone does not differentiate between previously resolved infection and active infection. Equivocal and Reactive HCV antibody results should be followed up with an HCV RNA test to support the diagnosis of active HCV infection. Blood 11/16/2023 8:53 AM CAGER OPERATOR 11/16/2023 Narrative [facility] - 11/17/2023 10:08 AM CAGER OPERATOR Performed at: 01 - [address] [id number] Bi Technical Lead: Jeferson Bennett PhD, Phone: [phone] us Brijesh Mendez MD LAB MICROBIOLOGY - GENERAL ORDERABLES Final Result Performing Organization Address City/State/[facility] Co de Phone Number [facility] - 01 from Last 3 Months or Most Recently Relevant to Health Maintenance Insurance [facility] CHOICE [facility]US [facility] H[facility]/PPO Address: [place] [address] [facility] CHOICE [facility] HMO/PPO Address: [address] [address] [place] [address] [facility] CHOICE PLUS [facility] HMO/PPO Address: [address] [address] [place] [address] Care Teams Manager Chemical Relationship Specialty Start Date End Date Matheus Cavanaugh DO PCP - General Internal Medicine 09/07/21
--- OUTSIDE RECORDS SUMMARY | 2024-11-09 19:37 | XMS_ITS | Encounter Summary ---
Author Organization [facility] Address [address] [place] [address] Phone Care Team Providers Care Medical Administrative Assistant Name Role Phone Matheus Cavanaugh DO Primary Care Provider +1- [phone] Encounter Details Date Type Department Care Team (Late st Contact Info) Description 02/06/2024 Documentation [facility] Gastroenterology [address] [facility] 12th [place] [address] [place] [address] Candy Chong RMA Social History Tobacco Use Types Packs/Day Years Used Date Smoking Tobacco: Never Comments Unknown Sex and Gender Information Value Date Recorded Sex Assigned at Not on file Legal Sex Female 10:35 AM COUNCILOR Gender Identity Not on file Sexual Orientation Not on file documented as of this encounter Plan of Treatment Not on file documented as of this encounter Visit Diagnoses Not on filedocumented in this encounter Care Teams Medical Administrative Assistant Relationship Specialty Start Date End Date Matheus Cavanaugh DO PCP - General Internal Medicine 09/07/21 documented as of this encounter
--- OUTSIDE RECORDS SUMMARY | 2024-11-09 19:37 | XMS_ITS | Encounter Summary ---
Author Organization [facility] Address [address] [place] [address] Phone Care Team Providers Care Relief Pilot Name Role Phone Matheus Cavanaugh DO Primary Care Provider [phone]- [phone] Encounter Details Date Type Department Care Team (Late st Contact Info) Description 11/09/2023 E-Visit [facility] S[facility] [address] [place] [id number] Brijesh Mendez MD [address] [place], [place] [id number] Liver test result Social History Tobacco Use Types Packs/Day Years Used Date Smoking Tobacco: Never Comments Unknown Sex and Gender Information Value Date Recorded Sex Assigned at Not on file Legal Sex Female 10:35 AM MAINTENANCE MECHANIC Gender Identity Not on file Sexual Orientation Not on file documented as of this encounter Plan of Treatment Not on file documented as of this encounter Procedures Procedure Name Priority Date/Time Associated Diagnosis Comments HEPATITIS E IGG/IGM AB Routine 11/16/2023 8:53 AM MAINTENANCE MECHANIC HEPATITIS C ANTIBODY Routine 11/16/2023 8:53 AM MAINTENANCE MECHANIC Multiple sclerosis (HCC) High risk medication use Immunosuppression due to drug therapy (HCC) Medication monitoring encounter Encounter for screening for viral disease HEPATITIS A ANTIBODY, TOTAL Routine 11/16/2023 8:53 AM MAINTENANCE MECHANIC Multiple sclerosis (HCC) High risk medication use Immunosuppression due to drug therapy (HCC) Medication monitoring encounter Encounter for screening for viral disease HEPATITIS B CORE ANTIBODY, TOTAL Routine 11/16/2023 8:53 AM MAINTENANCE MECHANIC Multiple sclerosis (HCC) High risk medication use Immunosuppression due to drug therapy (HCC) Medication monitoring encounter Encounter for screening for viral disease HEPATITIS B SURFACE ANTIBODY (IMMUNE STATUS) Routine 11/16/2023 8:53 AM MAINTENANCE MECHANIC Multiple sclerosis (HCC) High risk medication use Immunosuppression due to drug therapy (HCC) Medication monitoring encounter Encounter for screening for viral disease HEPATITIS B SURFACE ANTIGEN Routine 11/16/2023 8:53 AM MAINTENANCE MECHANIC Multiple sclerosis (HCC) High risk medication use Immunosuppression due to drug therapy (HCC) Medication monitoring encounter Encounter for screening for viral disease HEPATIC FUNCTION PANEL Routine 11/16/2023 8:53 AM MAINTENANCE MECHANIC Multiple sclerosis (HCC) High risk medication use Immunosuppression due to drug therapy (HCC) Medication monitoring encounter Encounter for screening for viral disease HEPATITIS E ANTIBODIES (IGG,IGM) Routine 11/11/2023 Multiple sclerosis (HCC) High risk medication use Immunosuppression due to drug therapy (HCC) Medication monitoring encounter Encounter for screening for viral disease documented in this encounter Results * Hepatitis E IgG/IgM ab (11/16/2023 8:53 AM MAINTENANCE MECHANIC) Hep E result Comment [facility] - 01 Comment:IgG Negative, IgM Ne gative Hep E IgG 0.016 [facility] - 01 Hep E IgM 0.008 [facility] - 01 Hep E reference cut-off index Comment [facility] - 01 Comment:Negative: <1.0, Posi tive: >/=1.0 Hep E interp Notes [facility] - 01 Comment: A Positive result is consistent with an infection with Hepatitis E virus. An Indeterminate result should be interpreted with caution and considered as borderline zone specimen, or uninterpretable for the time of testing. A recollection of a new specimen should be considered if clinically relevant. Interpretation of results should be in the context of the full clinical history of the patient. A Negative result indicates a lack of significant circulating antibodies, This can be the result of being in the early stage of an infection or a compromised immune system. If the results do not match the clinical impression, a second specimen may be warranted. Hep E methodology Comment [facility] - 01 Comment:Enzyme Linked Immuno sorbent Assay Hep E comment Notes [facility] - 01 Comment: Hepatitis E virus (HEV) is a single-stranded RNA virus and is the most common cause of acute viral hepatitis in the world. Due to nonspecific symptoms and a self-limited disease course, it is also not frequently diagnosed. HEV is commonly transmitted via the fecal-oral route from contaminated water, and large waterborne outbreaks frequently occur, especially in developing countries. The incubation period of HEV infection is usually 2-6 weeks. At the time of diagnosis, HEV RNA and anti-HEV IgM can be detected, followed by anti-HEV IgG antibodies. Anti-HEV IgM antibody positivity in the serum can be considered an important marker for acute HEV infection. Anti-HEV IgM antibodies have a positivity for a short period of time (approximately 3-4 months), but sometimes it persists for a year. Anti-HEV IgG antibody is relatively long-lasting, and the exact duration of this response remains uncertain. Hep E references Notes [facility] - 01 Comment: 1. Abdulaziz Blackmon (2013). Diagnosis of hepatitis E. Nature reviews Gastroenterology / hepatology, 10(1), 24-33. 2. Gus Thomason., Demetrice Nye., Inocencia Hogan, King Mendoza, / Reza Cruz (2016). Monitoring of anti-hepatitis E virus antibody seroconversion in asymptomatically infected blood donors: systematic comparison of nine commercial anti-HEV IgM and IgG assays. Viruses, 88, 232. Hep E disclaimer Notes [facility] - 01 Comment: This test was developed and its performance characteristics determined by [facility]. It has not been cleared or approved by the US Food and Drug Administration. This laboratory is certified under the Clinical Laboratory Improvement Amendments (CLIA) and licensed by the [facility] Department of [facility] as qualified to perform high complexity clinical laboratory testing. Hep E electronically signed by: Comment [facility] - 01 Comment:Cecelia Edwards 11/16/2023 8:53 AM MAINTENANCE MECHANIC 11/16/2023 Narrative [facility] - 11/21/2023 12:11 PM MAINTENANCE MECHANIC Performed at: [facility] [place] [id number] Spray I Painter: Loretta Camarena PhD, Phone: [phone] Brijesh Mendez MD LAB BLOOD ORDERABLES Final Result Performing Organization Address [facility]/ZIP Co de Phone Number [facility] - * (ABNORMAL) Hepatic function panel (11/16/2023 8:53 AM MAINTENANCE MECHANIC) [facility] Protein, sr 6.4 6.0 - 8.5 g/dL [facility] - 01 Albumin 4.0 3.9 - 4.9 g/dL [facility] - 01 Bilirubin, Total 0.6 0.0 - 1.2 mg/dL [facility] - 01 Bilirubin, direct 0.13 0.00 - 0.40 mg/dL [facility] - 01 Alk phos 67 44 - 121 IU/L [facility] - 01 AST 35 0 - 40 IU/L [facility] - 01 ALT 79(H) 0 - 32 IU/L [facility] - 01 Blood 11/16/2023 8:53 AM MAINTENANCE MECHANIC 11/16/2023 Narrative [facility] - 11/17/2023 7:08 AM MAINTENANCE MECHANIC Performed at: [address] [place] [id number] Spray I Painter: Jeferson Bennett PhD, Phone: [phone] us Brijesh Mendez MD LAB BLOOD ORDERABLES Final Result Performing Organization Address City/[facility]/ZIP Co de Phone Number [facility] - * Hepatitis A antibody, total Blood (11/16/2023 8:53 AM MAINTENANCE MECHANIC) [facility] Hep A total Negative Negative [facility] - 01 Comment: Comment: The HAV total antibody assay detects both IgG and IgM but does not differentiate between them. A negative result suggests susceptibility to infection. A positive result could be due to vaccination, previously resolved infection or active infection. Testing for HAV IgM should be performed if active HAV infection is suspected. [facility] offers profiles that will automatically reflex positive HAV total antibody results to IgM (e.g., panel #[id number] HAV Antibody w/ Rfx). Blood 11/16/2023 8:53 AM MAINTENANCE MECHANIC 11/16/2023 Narrative [facility] - 11/17/2023 10:08 AM MAINTENANCE MECHANIC Performed at: [address] [id number] Spray I Painter: Jeferson Bennett PhD, Phone: [phone] Brijesh Mendez MD LAB MICROBIOLOGY - GENERAL ORDERABLES Final Result Performing Organization Address [facility] Co de Phone Number [facility] - * Hepatitis C antibody Blood (11/16/2023 8:53 AM MAINTENANCE MECHANIC) Pathologist [facility] Hep C Ab Non Reactive Non Reactive [facility] - Comment: HCV antibody alone does not differentiate between previously resolved infection and active infection. Equivocal and Reactive HCV antibody results should be followed up with an HCV RNA test to support the diagnosis of active HCV infection. Blood 11/16/2023 8:53 AM MAINTENANCE MECHANIC 11/16/2023 Narrative [facility] - 11/17/2023 10:08 AM MAINTENANCE MECHANIC Performed at: [address] [id number] Spray I Painter: Jeferson Bennett PhD, Phone: [phone] Brijesh Mendez MD LAB MICROBIOLOGY - GENERAL ORDERABLES Final Result Performing Organization Address [facility] Co de Phone Number [facility] - * Hepatitis B core antibody, total Blood (11/16/2023 8:53 AM MAINTENANCE MECHANIC) Pathologist [facility] Hep B core IgG/IgM Negative Negative [facility] - 01 Blood 11/16/2023 8:53 AM MAINTENANCE MECHANIC 11/16/2023 Narrative [facility] - 11/17/2023 10:08 AM MAINTENANCE MECHANIC Performed at: [address] [id number] Spray I Painter: Jeferson Bennett PhD, Phone: [phone] Brijesh Mendez MD LAB MICROBIOLOGY - GENERAL ORDERABLES Final Result Performing Organization Address [facility] de Phone Number [facility] - * Hepatitis B Surface Antigen Blood (11/16/2023 8:53 AM MAINTENANCE MECHANIC) Pathologist [facility] HepBsAg Negative Negative [facility] - Blood 11/16/2023 8:53 AM MAINTENANCE MECHANIC 11/16/2023 Narrative [facility] - 11/17/2023 10:08 AM MAINTENANCE MECHANIC Performed at: [address] [place] [id number] Spray I Painter: Jeferson Bennett PhD, Phone: [phone] Brijesh Mendez MD LAB MICROBIOLOGY - GENERAL ORDERABLES Final Result Performing Organization Address [facility] Phone Number [facility] - * Hepatitis B surface antibody (immune status) Blood (11/16/2023 8:53 AM MAINTENANCE MECHANIC) Pathologist [facility] HBsAb (immune status) Non Reactive [facility] - 01 Comment: Non Reactive: Inconsistent with immunity, less than 10 mIU/mL Reactive: Consistent with immunity, greater than 9.9 mIU/mL Blood 11/16/2023 8:53 AM MAINTENANCE MECHANIC 11/16/2023 Narrative [facility] - 11/17/2023 10:08 AM MAINTENANCE MECHANIC Performed at: [address] [id number] Spray I Painter: Jeferson Bennett PhD, Phone: [phone] Brijesh Mendez MD LAB MICROBIOLOGY - GENERAL ORDERABLES Final Result Performing Organization Address [facility] Phone Number [facility] - * HEPATITIS E ANTIBODIES (IGG,IGM) (11/11/2023) Blood us Brijesh Mendez MD LAB BLOOD ORDERABLES Final Result EXTERNAL LAB documented in this encounter Visit Diagnoses Diagnosis Multiple sclerosis (HCC)- Primary Multiple sclerosis High risk medication use Immunosuppression due to drug therapy (HCC) Medication monitoring encounter Encounter for therapeutic drug monitoring Encounter for screening for viral disease documented in this encounter Care Teams Relief Pilot Relationship Specialty Start Date End Date Matheus Cavanaugh DO PCP - General Internal Medicine 09/07/21 documented as of this encounter
--- NOTE | 2024-11-09 19:45 | ECG_ITS ---
Test Date: 2024-11-09 19:49:52 Measurements Intervals [place] Rate: 87 P: 39 DE: 172 QRS: 16 QRSD: 71 T: 18 QT: 370 QTc: 446 Interpretive Statements SINUS RHYTHM BORDERLINE T WAVE ABNORMALITY- INFERIOR LEADS BORDERLINE ECG No previous ECG available for comparison Electronically Signed On 11-10-2024 06:22:58 DRY CHARGE PROCESS ATTENDANT by Bryn Daniel D.O.
[2024-11-09 19:46] VITALS: BP 147/87; PULSE 90; RESP 15; TEMP 36.6; O2SAT 100
[2024-11-09 22:05] VITALS: BP 144/92; PULSE 76; RESP 16; TEMP 36.8; O2SAT 100
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
[2024-11-09] MEDS: HYDROmorphone HCL INJ (*CRX) 1 MG/ML SYR 0.5 MG IV PUSH (22:53)
[2024-11-09 23:00] VITALS: BP 104/60; PULSE 71; RESP 15; TEMP 36.7; O2SAT 96
--- OUTSIDE RECORDS SUMMARY | 2024-11-09 23:42 | XMS_ITS | Encounter Summary ---
Author Organization [facility] Address [address] [place] [address] Phone Care Team Providers Care Surface Water Manager Name Role Phone Matheus Cavanaugh DO Primary Care Provider [phone]- [phone] Encounter Details Date Type Department Care Team (Late st Contact Info) Description 02/06/2024 Documentation [facility] G[facility]enterology [address] [place] [address] [place] [address] Candy Chong RMA Social History Tobacco Use Types Packs/Day Years Used Date Smoking Tobacco: Never Comments Unknown Sex and Gender Information Value Date Recorded Sex Assigned at Not on file 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
--- OUTSIDE RECORDS SUMMARY | 2024-11-09 23:42 | XMS_ITS | Referral Summary ---
Author Organization [facility] Address [address] [place] [address] Care Team Providers Care Supervisor Advertising Dispatch Clerks Name Role Phone Matheus Cavanaugh DO Primary Care Provider +1- [phone] Encounters Date Type Department Care Team Description 10/02/2024 Orders Only [facility] Gastroenterology [address] [facility] Advanced Medicine [facility] [place] [address] [place] [address] Estella Baez Gallbladder polyp 10/02/2024 Telephone [facility] G[facility]enter[facility] Medicine [facility] [place] [address] [place] [address] Estella Baez Schedule Ultrasound 09/25/2024 Telephone [facility]enter[facility] [address] [place] [address] [place] [address] Cassie Morris, BRIANNE 08/17/2024 Telephone [facility] Multiple Sclerosis [address] [place] [phone] Marlen Bird, TOMMY 08/13/2024 Telephone [facility]enter[facility] [address] [facility] Medicine [facility] [place] [address] [place] [address] Estella Baez from Last 3 Months Allergies [...] obtain US report that was done at [facility]. Also recommended hepatitis A and B vaccine [...] of weight loss. She declined meeting with biodiesel product development manager at this time. 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..] [facility] - 01 Blood 09/24/2024 2:29 PM COOKER SODA 09/24/2024 Narrative [facility] - 09/25/2024 8:12 AM COOKER SODA Performed at: [facility] [id number] Airplane Pilot: Jeferson Bennett PhD, Phone: [phone] Pema Beltran NP LAB BLOOD ORDERABLES Fin al Result [facility] - 01 * Hepatitis C antibody Blood (11/16/2023 8:53 AM COOKER SODA) Pathologist [facility] Hep C Ab Non Reactive Non Reactive [facility] - 01 Comment: HCV antibody alone does not differentiate between previously resolved infection and active infection. Equivocal and Reactive HCV antibody results should be followed up with an HCV RNA test to support the diagnosis of active HCV infection. Blood 11/16/2023 8:53 AM COOKER SODA 11/16/2023 Narrative [facility] - 11/17/2023 10:08 AM COOKER SODA Performed at: 01 - [address] [id number] Airplane Pilot: Jeferson Bennett PhD, Phone: [phone] us Brijesh Mendez MD LAB MICROBIOLOGY - GENERAL ORDERABLES Final Result Performing Organization Address City/State/[facility] Co de Phone Number [facility] - 01 from Last 3 Months or Most Recently Relevant to Health Maintenance Insurance [facility] CHO[facility] PLUS [facility] HMO/PPO Address: [place] [address] [facility] CHOICE PLUS [facility] H[facility]/PPO Address: [address] [address] [place] [address] [facility] CHOICE PLUS [facility] HMO/PPO Address: [address] [address] [place] [address] Care Teams Supervisor Advertising Dispatch Clerks Relationship Specialty Start Date End Date Matheus Cavanaugh DO PCP - General Internal Medicine 09/07/21
--- OUTSIDE RECORDS SUMMARY | 2024-11-09 23:42 | XMS_ITS | Clinical Summary ---
Author Organization [facility] Address [address] [place] [address] Care Team Providers Care Duty Manager Name Role Phone Matheus Cavanaugh DO Primary Care Provider +1- [phone] Allergies No known active allergies Medications lisinopriL (PRINIVIL,ZESTR [place]) 30 mg tablet Take 1 tablet (30 [...] obtain US report that was done at [facility]. Also recommended hepatitis A and B vaccine [...] of weight loss. She declined meeting with newspaper vendor at this time. Discussed diet and the need to increase physical activity. Immunosuppression due to drug therapy 07/12/2023 High risk medication use 07/12/2023 Medication monitoring encounter 07/12/2023 Abnormal MRI 07/12/2023 Vitamin D deficiency 07/12/2023 Neurogenic bladder disorder 10/30/2022 Primary hypertension 06/12/2022 Multiple sclerosis 05/01/2022 Numbness 05/01/2022 Encounters Date Type Department Care Team Description 10/02/2024 Orders Only [facility] Gastroenterology [address] [facility] 12th [place] [address] [place] [address] Estella Baez Gallbladder polyp 10/02/2024 Telephone [facility] Gastroenterology [facility] [address] [place] [address] [place] [phone] Estella Baez Schedule Ultrasound 09/25/2024 Telephone [facility] Gastroenterology [address] [place] [address] [place] [phone] Cassie Morris, BRIANNE 08/17/2024 Telephone [facility] Multiple Sclerosis [address] [place] [phone] Marlen Bird, TOMMY 08/13/2024 Telephone [facility] Gastroenterology [address] [place] [address] [place] [address] [place] [phone] Estella Baez from Last 3 Months Immunizations [...] on file 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 Gender Identity Not on file Sexual Orientation [...] HEPATIC FUNCTION PANEL Routine 09/24/2024 2:29 PM CAGE/VAULT SUPERVISOR Elevated liver enzymes Hepatic steatosis HEPATITIS C ANTIBODY Routine 11/16/2023 8:53 AM CAGE/VAULT SUPERVISOR Multiple sclerosis (HCC) High risk medication use Immunosuppression due to drug therapy (HCC) Medication monitoring encounter Encounter for screening for viral disease from Last 3 Months or Most Recently Relevant to Health Maintenance Results * (ABNORMAL) Hepatic function panel (09/24/2024 2:29 PM CAGE/VAULT SUPERVISOR) Protein, sr 6.9 6.0 - 8.5 g/dL [...] [facility] - 01 Blood 09/24/2024 2:29 PM CAGE/VAULT SUPERVISOR 09/24/2024 Narrative [facility] - 09/25/2024 8:12 AM CAGE/VAULT SUPERVISOR Performed at: [facility] [id number] Project Designer: Jeferson Bennett PhD, Phone: [phone] Pema Beltran NP LAB BLOOD ORDERABLES Fin al Result Performing Organization Address [facility] Co de Phone Number [facility] - * Hepatitis C antibody Blood (11/16/2023 8:53 AM CAGE/VAULT SUPERVISOR) [facility] Hep C Ab Non Reactive Non Reactive [facility] - Comment: HCV antibody alone does not differentiate between previously resolved infection and active infection. Equivocal and Reactive HCV antibody results should be followed up with an HCV RNA test to support the diagnosis of active HCV infection. Blood 11/16/2023 8:53 AM CAGE/VAULT SUPERVISOR 11/16/2023 Narrative [facility] - 11/17/2023 10:08 AM CAGE/VAULT SUPERVISOR Performed at: [facility] [id number] Project Designer: Jeferson Bennett PhD, Phone: [phone] Brijesh Mendez MD LAB MICROBIOLOGY - GENERAL ORDERABLES Final Result Performing Organization Address City/[facility]/ZIP Co de Phone Number [facility] - from Last 3 Months or Most Recently Relevant to Health Maintenance Insurance [facility] PLUS [facility] PL[facility] Care Teams Duty Manager Relationship Specialty Start Date End Date Matheus Cavanaugh DO PCP - General Internal Medicine 09/07/21
--- OUTSIDE RECORDS SUMMARY | 2024-11-09 23:42 | XMS_ITS | Encounter Summary ---
Author Organization [facility] Address [address] [place] [address] Phone Care Team Providers Care Executive Personal Assistant Name Role Phone Matheus Cavanaugh DO Primary Care Provider +1- [phone] Encounter Details Date Type Department Care Team (Late st Contact Info) Description 11/09/2023 E-Visit [facility] Multiple Sclerosis [address] [place] [phone] Brijesh Mendez MD [address] [place], [place] [phone] Liver test result Social History Tobacco Use Types Packs/Day Years Used Date Smoking Tobacco: Never Comments Unknown Sex and Gender Information Value Date Recorded Sex Assigned at Not on file 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 Gender Identity Not on file Sexual Orientation Not on file documented as of this encounter Plan of Treatment Not on file documented as of this encounter Procedures Procedure Name Priority Date/Time Associated Diagnosis Comments HEPATITIS E IGG/IGM AB Routine 11/16/2023 8:53 AM FILM CRITIC HEPATITIS C ANTIBODY Routine 11/16/2023 8:53 AM FILM CRITIC Multiple sclerosis (HCC) High risk medication use Immunosuppression due to drug therapy (HCC) Medication monitoring encounter Encounter for screening for viral disease HEPATITIS A ANTIBODY, TOTAL Routine 11/16/2023 8:53 AM FILM CRITIC Multiple sclerosis (HCC) High risk medication use Immunosuppression due to drug therapy (HCC) Medication monitoring encounter Encounter for screening for viral disease HEPATITIS B CORE ANTIBODY, TOTAL Routine 11/16/2023 8:53 AM FILM CRITIC Multiple sclerosis (HCC) High risk medication use Immunosuppression due to drug therapy (HCC) Medication monitoring encounter Encounter for screening for viral disease HEPATITIS B SURFACE ANTIBODY (IMMUNE STATUS) Routine 11/16/2023 8:53 AM FILM CRITIC Multiple sclerosis (HCC) High risk medication use Immunosuppression due to drug therapy (HCC) Medication monitoring encounter Encounter for screening for viral disease HEPATITIS B SURFACE ANTIGEN Routine 11/16/2023 8:53 AM FILM CRITIC Multiple sclerosis (HCC) High risk medication use Immunosuppression due to drug therapy (HCC) Medication monitoring encounter Encounter for screening for viral disease HEPATIC FUNCTION PANEL Routine 11/16/2023 8:53 AM FILM CRITIC Multiple sclerosis (HCC) High risk medication use Immunosuppression due to drug therapy (HCC) Medication monitoring encounter Encounter for screening for viral disease HEPATITIS E ANTIBODIES (IGG,IGM) Routine 11/11/2023 Multiple sclerosis (HCC) High risk medication use Immunosuppression due to drug therapy (HCC) Medication monitoring encounter Encounter for screening for viral disease documented in this encounter Results * Hepatitis E IgG/IgM ab (11/16/2023 8:53 AM FILM CRITIC) Hep E result Comment [facility] - 01 [...] developed and its performance characteristics determined by [employer]. It has not been cleared or approved by the US Food and Drug Administration. This laboratory is certified under the Clinical Laboratory Improvement Amendments (CLIA) and licensed by the [facility] Department of [facility] as qualified to perform high complexity clinical laboratory testing. Hep E electronically signed by: Comment [facility] - 01 Comment:Cecelia Edwards 11/16/2023 8:53 AM FILM CRITIC 11/16/2023 Narrative [facility] - 11/21/2023 12:11 PM FILM CRITIC Performed at: [facility] [employer] [place] [id number] Storage Architect: Loretta Camarena PhD, Phone: [phone] Brijesh Mendez MD LAB BLOOD ORDERABLES Final Result Performing Organization Address [facility]/ZIP Co de Phone Number [facility] - * (ABNORMAL) Hepatic function panel (11/16/2023 8:53 AM FILM CRITIC) [facility] Protein, sr 6.4 6.0 - 8.5 g/dL [...] [facility] - 01 Blood 11/16/2023 8:53 AM FILM CRITIC 11/16/2023 Narrative [facility] - 11/17/2023 7:08 AM FILM CRITIC Performed at: [address] [place] [id number] Storage Architect: Jeferson Bennett PhD, Phone: [phone] us Brijesh Mendez MD LAB BLOOD ORDERABLES Final Result Performing Organization Address City/[facility]/ZIP Co de Phone Number [facility] - * Hepatitis A antibody, total Blood (11/16/2023 8:53 AM FILM CRITIC) [facility] Hep A total Negative Negative [facility] - [...] total antibody results to IgM (e.g., panel #[id number] HAV Antibody w/ Rfx). Blood 11/16/2023 8:53 AM FILM CRITIC 11/16/2023 Narrative [facility] - 11/17/2023 10:08 AM FILM CRITIC Performed at: [address] [id number] Storage Architect: Jeferson Bennett PhD, Phone: [phone] Brijesh Mendez MD LAB MICROBIOLOGY - GENERAL ORDERABLES Final Result Performing Organization Address [facility] Co de Phone Number [facility] - * Hepatitis C antibody Blood (11/16/2023 8:53 AM FILM CRITIC) Pathologist [facility] Hep C Ab Non Reactive Non Reactive [facility] - Comment: HCV antibody alone does not differentiate between previously resolved infection and active infection. Equivocal and Reactive HCV antibody results should be followed up with an HCV RNA test to support the diagnosis of active HCV infection. Blood 11/16/2023 8:53 AM FILM CRITIC 11/16/2023 Narrative [facility] - 11/17/2023 10:08 AM FILM CRITIC Performed at: [address] [id number] Storage Architect: Jeferson Bennett PhD, Phone: [phone] Brijesh Mendez MD LAB MICROBIOLOGY - GENERAL ORDERABLES Final Result Performing Organization Address [facility] Co de Phone Number [facility] - * Hepatitis B core antibody, total Blood (11/16/2023 8:53 AM FILM CRITIC) Pathologist [facility] Hep B core IgG/IgM Negative Negative [facility] - 01 Blood 11/16/2023 8:53 AM FILM CRITIC 11/16/2023 Narrative [facility] - 11/17/2023 10:08 AM FILM CRITIC Performed at: [address] [id number] Storage Architect: Jeferson Bennett PhD, Phone: [phone] Brijesh Mendez MD LAB MICROBIOLOGY - GENERAL ORDERABLES Final Result Performing Organization Address [facility] de Phone Number [facility] - * Hepatitis B Surface Antigen Blood (11/16/2023 8:53 AM FILM CRITIC) Pathologist [facility] HepBsAg Negative Negative [facility] - Blood 11/16/2023 8:53 AM FILM CRITIC 11/16/2023 Narrative [facility] - 11/17/2023 10:08 AM FILM CRITIC Performed at: [address] [place] [id number] Storage Architect: Jeferson Bennett PhD, Phone: [phone] Brijesh Mendez MD LAB MICROBIOLOGY - GENERAL ORDERABLES Final Result Performing Organization Address [facility] Phone Number [facility] - * Hepatitis B surface antibody (immune status) Blood (11/16/2023 8:53 AM FILM CRITIC) Pathologist [facility] HBsAb (immune status) Non Reactive [facility] - 01 Comment: Non Reactive: Inconsistent with immunity, less than 10 mIU/mL Reactive: Consistent with immunity, greater than 9.9 mIU/mL Blood 11/16/2023 8:53 AM FILM CRITIC 11/16/2023 Narrative [facility] - 11/17/2023 10:08 AM FILM CRITIC Performed at: [address] [id number] Storage Architect: Jeferson Bennett PhD, Phone: [phone] Brijesh Mendez MD LAB MICROBIOLOGY - GENERAL ORDERABLES Final Result Performing Organization Address [facility] Phone Number [facility] - * HEPATITIS E ANTIBODIES (IGG,IGM) (11/11/2023) Blood us Brijesh Mendez MD LAB BLOOD ORDERABLES Final Result EXTERNAL LAB documented in this encounter Visit Diagnoses Diagnosis Multiple sclerosis (HCC)- Primary Multiple sclerosis High risk medication use Immunosuppression due to drug therapy (HCC) Medication monitoring encounter Encounter for therapeutic drug monitoring Encounter for screening for viral disease documented in this encounter Care Teams Executive Personal Assistant Relationship Specialty Start Date End Date Matheus Cavanaugh DO PCP - General Internal Medicine 09/07/21 documented as of this encounter
--- OUTSIDE RECORDS SUMMARY | 2024-11-09 23:42 | XMS_ITS | Encounter Summary ---
Author Organization [facility] Address [address] [place] [address] Phone Care Team Providers Care Log Deck Tender Name Role Phone Matheus Cavanaugh DO Primary Care Provider +1- [phone] Encounter Details Date Type Department Care Team (Late st Contact Info) Description 11/13/2023 Orders Only [facility] Scanning, Provider Social History Tobacco Use Types Packs/Day Years Used Date Smoking Tobacco: Never Comments Unknown Sex and Gender Information Value Date Recorded Sex Assigned at Not on file 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
[2024-11-09 23:55] LABS: BEDSIDEPREGUCG Negative (Negative)
[2024-11-09 23:57] LABS: Basophils Percent Auto 0.2 % (0.2-1.2); Eosinophils Percent Auto 0.3 % (0-4.4); Hematocrit 39.9 % (37.0-47.0); Hemoglobin 13.7 g/dL (12.0-15.0); Immature Granulocyte Absolute 0.04 K/mm3 (0.00-0.031); Immature Granulocyte Percent A 0.3 % (0-0.5); Lymphocytes Absolute Auto 0.69 K/mm3 (0.9-3.2); Lymphocytes Percent Auto 5.7 % (18.3-44.2); Mean Corpuscular HGB Conc 34.3 g/dl (32-36); Mean Corpuscular Hemoglobin 33.8 pg (26-34); Mean Corpuscular Volume 98.5 fl (80-100); Mean Platelet Volume 10.1 fl (7.4-10.4); Monocytes Percent Auto 8.5 % (2.6-8.5); Neutrophils Absolute Auto 10.4 K/mm3 (1.3-6.7); Platelet Count Result 132 k/mm3 (150-375); Red Blood Count 4.05 M/mm3 (4.2-5.4); Red Cell Distribution Width 12.1 % (11.5-14.5); White Blood Count 12.2 K/mm3 (4.5-10.0)
[2024-11-10 00:05] LABS: Estimated CRCL calculation 82 ml/min; Estimated Glomerular Filt Rate > 60
[2024-11-10 00:08] LABS: Anion Gap 6 mmol/L (4-12); Blood Urea Nitrogen 18 mg/dL (7-17); Calcium 8.7 mg/dL (8.4-10.2); Carbon Dioxide 26 mmol/L (22-30); Chloride 104 mmol/L (98-107); Estimated CRCL calculation 91 ml/min; Estimated Glomerular Filt Rate > 60; Glucose 113 mg/dL (65-110); Potassium 4.1 mmol/L (3.4-5.0); Sodium 136 mmol/L (137-145)
[2024-11-10 01:00] VITALS: BP 136/93; PULSE 66; RESP 18; TEMP 36.7; O2SAT 96
--- NOTE | 2024-11-10 02:12 | PC.NURSE ---
Patient states to nursing staff that she will not try crutches until she gets more pain medication. EDP PAIGE Berman notified.
[2024-11-10] MEDS: IBUPROFEN 400 MG TABLET 800 MG PO (02:30)
[2024-11-10] MEDS: ACETAMINOPHEN 500 MG TABLET 1000 MG PO (02:30)
== END 2024-11-10 02:36 | disposition home or self-care (01) ==
PROVIDERS: Emergency Medicine; Emergency Provider Physician Assistant; PCP Internal Medicine
DX: S49.92XA Unspecified injury of left shoulder and upper arm, initial encounter (principal); S30.1XXA Contusion of abdominal wall, initial encounter; S20.211A Contusion of right front wall of thorax, initial encounter; S89.92XA Unspecified injury of left lower leg, initial encounter; S59.912A Unspecified injury of left forearm, initial encounter; G35 Multiple sclerosis; I10 Essential (primary) hypertension; E89.0 Postprocedural hypothyroidism; E66.9 Obesity, unspecified; Z68.33 Body mass index [BMI] 33.0-33.9, adult; Z97.5 Presence of (intrauterine) contraceptive device; Z79.899 Other long term (current) drug therapy; V43.52XA Car driver injured in collision with other type car in traffic accident, initial encounter; R94.31 Abnormal electrocardiogram [ECG] [EKG]
CPT/HCPCS: 36415; 71045; 71260; 73030; 73060; 73090; 73562; 74177; 80048; 81025; 85025; 93005; 96374; 99284; A9270; J1171; Q9967

== ENCOUNTER 2024-11-19 10:20 | Outpatient (CLI) | payer OTHER, SELFPAY | END 2024-11-19 10:21 | disposition home or self-care (01) | PROVIDERS: PCP Internal Medicine; Visit Provider Nurse Practitioner | DX: M53.3 Sacrococcygeal disorders, not elsewhere classified (principal); M46.1 Sacroiliitis, not elsewhere classified; M25.852 Other specified joint disorders, left hip | CPT/HCPCS: 71110; 72052; 72220 ==

== ENCOUNTER 2024-12-01 08:41 | Outpatient (CLI) | payer OTHER, SELFPAY ==
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
== END 2024-12-01 08:42 | disposition home or self-care (01) ==
LOC: GOSHIMG 08:42
PROVIDERS: PCP Nurse Practitioner; Visit Provider Nurse Practitioner Family
DX: M51.26 Other intervertebral disc displacement, lumbar region (principal); M51.369 Other intervertebral disc degeneration, lumbar region without mention of lumbar back pain or lower extremity pain
CPT/HCPCS: 72148

== ENCOUNTER 2024-12-04 07:46 | Outpatient (CLI) | payer OTHER, SELFPAY ==
--- NOTE | ~2024-12-04 | US_ITS ---
Limited Abdominal Sonogram: Real-time sonographic imaging of the right upper quadrant was performed. Clinical History: Gallbladder polyp Findings: The liver appears echogenic, with no evidence of mass lesion or bile duct dilatation. Main portal vein demonstrates normal direction of flow. The gallbladder is well distended, 5 mm gallbladd er wall polyp. The common bile duct measures 4 mm. The visualized pancreas, aorta, and IVC are unrem arkable. Right kidney measures 9.1 cm in length, without evidence of hydronephrosis or renal stone. Impression: Diffuse fatty infiltration of liver. 5 mm gallbladder wall polyp. Reviewed, dictated and finalized at location M. Impression: Diffuse fatty infiltration of liver. 5 mm gallbladder wall polyp.
== END 2024-12-04 07:47 | disposition home or self-care (01) ==
LOC: MICIMG 07:47
PROVIDERS: PCP Nurse Practitioner
DX: K82.4 Cholesterolosis of gallbladder (principal); K76.0 Fatty (change of) liver, not elsewhere classified
CPT/HCPCS: 76705